=== PATIENT | female | born 1975 | race Caucasian/White ===

== ENCOUNTER → 2019-01-10 17:40 | Outpatient (CLI) | payer OTHER, SELFPAY ==
[2019-01-10 19:31] LABS: Basophils % 0.3 % (0.1-2.0); Eosinophils # 0.1 K/mm3 (0.0-0.4); Eosinophils % 0.7 % (0.1-12.0); Hematocrit 43.1 % (37.0-47.0); Hemoglobin 13.5 g/dL (12.2-16.2); Lymphocytes # 2.2 K/mm3 (0.7-4.5); Lymphocytes % 26.9 % (10-50); Mean Corpuscular HGB Conc 31.4 g/dL (31.8-35.4); Mean Corpuscular Hemoglobin 27.4 pg (27.0-31.2); Mean Corpuscular Volume 87.5 fl (81-99); Mean Platelet Volume 8.2 fl (7.4-10.4); Monocytes # 0.4 K/mm3 (0.1-1.0); Monocytes % 4.6 % (1.7-9.3); Neutrophils # 5.5 K/mm3 (1.8-7.8); Neutrophils % 67.4 % (37.0-80.0); Platelet Count 322 K/mm3 (142-424); Red Blood Count 4.93 M/mm3 (4.20-5.40); Red Cell Distribution Width 13.8 % (11.5-17.5); White Blood Count 8.2 K/mm3 (4.8-10.8)
[2019-01-10 21:03] LABS: Alanine Aminotransferase 23 U/L (12-78); Albumin Level 4.3 gm/dL (3.4-5.0); Albumin/Globulin Ratio 1.2 (1.1-1.8); Alkaline Phosphatase 96 U/L (46-116); Amylase 48 U/L (25-115); Anion Gap 16.2 mEq/L (5-15); Aspartate Amino Transferase 13 U/L (15-37); Bilirubin,Total 0.4 mg/dL (0.2-1.0); Blood Urea Nitrogen 16 mg/dL (7-18); Calcium 9.8 mg/dL (8.5-10.1); Carbon Dioxide 25 mmol/L (21.0-32.0); Chloride 101 mmol/L (98-107); Cholesterol 156 mg/dL (140-200); Creatinine,Serum 1.04 mg/dL (0.55-1.02); Estimated Glomerular Filt Rate 58 ml/min (>60); GFR (African American) 70 ML/MIN (>60); Globulin 3.7 gm/dl (1.3-3.2); Glucose 83 mg/dL (74-106); HDL Cholesterol 39 mg/dL (29-89); LDL Cholesterol 89 mg/dL (0-130); Lipase 182 u/L (73-393); Potassium 4.2 mmoL/L (3.5-5.1); Sodium 138 mmol/L (136-145); T4 (Thyroxine) 7.1 ug/dl (4.7-13.3); Thyroid Stimulating Hormone 1.64 uIU/ml (0.358-3.740); Triglycerides 140 mg/dL (30-200); VLDL Cholesterol 28 mg/dL (0-40)
== END ==
PROVIDERS: Visit Provider Physician Assistant
DX: R10.9 Unspecified abdominal pain (principal)
CPT/HCPCS: 80053; 80061; 82150; 83690; 84436; 84443; 85025

== ENCOUNTER → 2019-01-25 09:25 | Outpatient (CLI) | payer OTHER, SELFPAY ==
--- NOTE | 2019-01-25 09:29 | CT_ITS ---
PROCEDURE: CT ABDOMEN PELVIS WO CON CLINICAL HISTORY: right flank pain Abdominal pain, right flank pain COMPARISON: No exams were available for comparison TECHNIQUE: Axial images obtained with sagittal and coronal reformats. All CT scans at the facility use one or more dose reduction, viz: automated exposure control, ma/kV adjustment per patient size (including targeted exams where dose is matched to indication, i.e. head), or iterative reconstruction technique. FINDINGS: Lung bases are clear. Post cholecystectomy. No focal liver lesion. The spleen and adrenal glands have an unremarkable appearance. There is increased density in the region of the pancreatic head. This may only be secondary to prominent unopacified superior mesenteric and portal veins and could be confirmed with repeat exam with IV contrast. There are nonobstructing bilateral renal calculi. There is a 3 mm calculus in the upper pole of the right kidney and 2 mm calculi in the mid and lower pole of the left kidney. No ureteral calculi. No hydronephrosis. No evidence of appendicitis. There is some hyperdense material within the appendix and could be related to contrast or bismuth containing material or developing appendicoliths. No evidence of diverticulitis. No intestinal obstruction or free air. There is a mild amount of retained colonic feces. No pelvic mass or abnormal fluid collection or focal inflammatory change of the pelvis. No acute bony findings. IMPRESSION: 1. Nonobstructing bilateral renal calculi 2. Increased soft tissue density within the pancreatic head. May be related to unopacified prominent superior mesenteric and portal vein. Cannot exclude a mass of the pancreatic head consider repeating exam without and with contrast with pancreatic protocol for confirmation Dictated by: Jac Pinzon MD 01/25/2019 14:33 Signed by: <Electronically signed by Jac Pinzon MD in [place]> 01/25/2019 14:33
== END ==
PROVIDERS: PCP Emergency Medicine; Visit Provider Physician Assistant
DX: R10.9 Unspecified abdominal pain (principal)
CPT/HCPCS: 74176

== ENCOUNTER → 2019-02-12 09:54 | Outpatient (CLI) | payer OTHER, SELFPAY ==
--- NOTE | 2019-02-12 10:01 | CT_ITS ---
PROCEDURE: CT ABDOMEN PELVIS WO/W CON CLINICAL INDICATION: Possible pancreatic mass Mid abdominal pain, right-sided abdominal pain, possible pancreatic mass seen on previous CT scan COMPARISON: CT ABDOMEN PELVIS WO CON from 01/25/2019 TECHNIQUE: IV Contrast: 75ML OPTIRAY 350 Oral Contrast none Axial images obtained with sagittal and coronal reformats. All CT scans at the facility use one or more dose reduction, viz: automated exposure control, ma/kV adjustment per patient size (including targeted exams where dose is matched to indication, i.e. head), or iterative reconstruction technique. FINDINGS: Lung bases are clear. Post cholecystectomy change. No focal liver lesions. Nonobstructing bilateral renal calculi once again noted. No hydronephrosis. The spleen, adrenal glands have an unremarkable appearance. Previously there was a questionable pancreatic mass with increased soft tissue density noted in the head of the pancreas. This however represented a prominent superior mesenteric and portal vein. No pancreatic mass is evident. No evidence of pancreatitis. There is a tiny umbilical hernia which contains fat. Unremarkable appendix. No intestinal obstruction or free air. There is a bulky uterus without obvious uterine mass. Small cystic areas present in the left adnexa suggesting a small ovarian cyst at 1.3 cm. The urinary bladder has an unremarkable appearance. There are degenerative changes in the a thoracic and lumbar spine. IMPRESSION: 1. No evidence of pancreatic mass 2. No acute abdominal or pelvic findings. Dictated by: Jac Pinzon MD 02/12/2019 11:08 Signed by: <Electronically signed by Jac Pinzon MD in [place]> 02/12/2019 11:08
== END ==
PROVIDERS: PCP Physician Assistant; Visit Provider Physician Assistant
DX: R93.5 Abnormal findings on diagnostic imaging of other abdominal regions, including retroperitoneum (principal)
CPT/HCPCS: 74178; Q9967

== ENCOUNTER → 2019-02-26 09:11 | Outpatient (CLI) | payer OTHER, SELFPAY ==
--- NOTE | 2019-02-26 09:14 | MM_ITS ---
PROCEDURE: MM DIG SCREENING MAMM BI W/CAD Patient Age:43Y CLINICAL INDICATION: Screening for breast cancer no hormones. No new complaints. Family history.: Paternal and maternal aunt with breast cancer COMPARISON: [facility] MAMMO SCREENING BILATERAL from 02/24/2016.-[facility] TECHNIQUE: Standard CC and MLO images were obtained. R2 CAD reviewed. FINDINGS: Moderate breast density elements most evident central and to the upper outer quadrant. When technique is considered appears to be overall adequate stable mammogram today's studies higher contrast character but similar parenchymal pattern and distribution with no discrete dominant or suspicious new mass no change since previous outside studies from [facility] IMPRESSION: No new dominant or suspicious mass. Overall stable mammogram Moderately dense asymmetric breast tissue towards upper outer quadrant both breast is accentuated in both breast by today's technique compared to prior 2016 outside studies; however I see no convincing interval change when differences in technique considered.. Bilateral follow-up 1 year recommended and encouraged,... Along with self breast examination BI-RAD Category: 2 Benign Finding(s) FOLLOW-UP: 1YR 1 Year Follow-up Bilateral follow-up 1 year should be emphasized in encouraged along with self breast examination and provider attention towards towards upper-outer quadrant (A letter has been sent to the patient regarding results of the study.) Dictated by: Tripp Ellis MD 03/04/2019 20:00 Electronically signed by Tripp Ellis MD in [place] 03/05/2019 11:38
== END ==
PROVIDERS: PCP Physician Assistant; Visit Provider Physician Assistant
DX: Z12.31 Encounter for screening mammogram for malignant neoplasm of breast (principal)
CPT/HCPCS: 77067

== ENCOUNTER → 2019-09-23 09:22 | Outpatient (CLI) | payer MEDICAID, SELFPAY ==
--- NOTE | 2019-09-23 09:30 | MM_ITS ---
PROCEDURE: MM DIG MAMM DX UNILAT LT CAD Digital Breast Tomosynthesis Included CLINICAL INDICATION: Left breast mass COMPARISON: [facility] MAMMO SCREENING BILATERAL from 02/24/2016 MM DIG SCREENING MAMM BI W/CAD from 02/26/2019 US BREAST LT COMPLETE from 09/23/2019 TECHNIQUE: Standard CC and MLO images and 3D Tomosynthesis was obtained. R2 CAD reviewed. FINDINGS: There is average fibroglandular tissue. No malignant appearing mass or malignant-appearing microcalcification is evident. Patient reports palpable abnormality in the upper outer left breast. A marker is placed at this area. There is some heterogeneous tissue noted at this region but no discrete mass. Left breast ultrasound: No cystic or solid lesion. There is heterogeneous echogenic tissue at the area of palpable concern. Small nodes are present in the left axilla. IMPRESSION: No evidence of malignancy. Recommend continued screening mammogram in February of 2020 BI-RAD Category: 2 Benign Finding(s) FOLLOW-UP: 6M 6Month Follow-up (A letter has been sent to the patient regarding results of the study.) Dictated by: Jac Pinzon MD 09/23/2019 10:29 Electronically signed by Jac Pinzon MD in [place] 09/23/2019 10:29
== END ==
PROVIDERS: PCP Physician Assistant; Visit Provider Physician Assistant
DX: N63.21 Unspecified lump in the left breast, upper outer quadrant (principal)
CPT/HCPCS: 76641; 77061; 77065; G0279

== ENCOUNTER → 2020-02-20 18:53 | Outpatient (CLI) | payer MEDICAID, SELFPAY | PROVIDERS: Visit Provider Physician Assistant | DX: R10.30 Lower abdominal pain, unspecified (principal) | CPT/HCPCS: 87086; 87088; 87186 ==

== ENCOUNTER 2020-05-03 13:19 | Emergency (ER) | payer MEDICAID, SELFPAY ==
[2020-05-03 13:30] VITALS: BP 116/56; PULSE 85; RESP 18; TEMP 36.9; O2SAT 97; BMI 36.0
--- NOTE | 2020-05-03 14:15 | HMH.EDUTC ---
[facility] Disposition Clinical Impression: Acute bronchitis Qualifiers: Bronchitis organism: unspecified organism Qualified Code(s): J20.9 - Acute bronchitis, unspecified Otitis media Qualifiers: Otitis media type: suppurative Chronicity: acute Laterality: bilateral Recurrence: non-recurrent Spontaneous tympanic membrane rupture: without spontaneous rupture Qualified Code(s): H66.003 - Acute suppurative otitis media without spontaneous rupture of ear drum, bilateral Disposition: Home, Self-Care Condition on Discharge: Good Instructions: Acute Bronchitis, DI for Acute Bronchitis Additional Instructions: Drink plenty of fluids. Take tylenol or ibuprofen for pain or fever. Take the medications as directed. Follow up with your regular doctor. GO TO THE ER FOR ANY WORSENING SYMPTOMS Prescriptions: Albuterol Sulfate [Albuterol Sulfate Hfa] 2 puffs IH Q6HP PRN 30 Days #1 [email or web address] PRN Reason: Shortness Of Breath [facility] methylPREDNISolone [Medrol] 4 mg PO DIRECTED 6 Days #21 tab.[email or web address] Transmission Status: [facility] Benzonatate [Tessalon Perle 100mg Cap] 100 mg PO TIDP PRN #30 cap PRN Reason: Cough Transmission Status[facility] Azithromycin [Z-Porter 250mg Tab*] 250 mg PO UD DOSE PK #6 tab Transmission Status: Pending to [facility] Referrals: Cammie Stack PA [Primary Care Provider] - Time of Disposition: 14:21 Medical Decision Making - Medical Records Medical records reviewed: No: I reviewed the patient's medical records. - Aron Inquiry Pt receiving controlled substance: No Vital Signs: 05/03/20 13:30 Temperature 98.5 F Temperature Source Oral Pulse Rate [Right Brachial] 85 Respiratory Rate 18 Blood Pressure [Right Arm] 116/56 L Blood Pressure Mean [Right Arm] 76 Blood Pressure Source [Right Arm] Automatic Cuff Blood Pressure Position [Right Arm] Sitting 02 Sat by Pulse Oximetry 97 Oxygen Delivery Method Room Air [facility] HPI - General Stated complaint: ear pain Time Seen by Provider: 05/03/20 14:15 Mode of Arrival: Ambulatory Source of Information: Patient Limitations: No Limitations Description of Symptoms (Recalled from Triage Doc. by RN): PATIENT C/O RIGHT EAR PAIN AND PRODUCTIVE COUGH X 2 WEEKS HEENT Symptoms (Recalled from RN notes): Yes Resp Symptoms (Recalled from RN notes): Yes Skin Symptoms (Recalled from RN notes): No MS Symptoms (Recalled from RN notes): No Functional Status (Recalled from RN notes): WNL - History of Present Illness Provider Complaint: She states that she has had a productive cough for the past 2 weeks. She states that she gets this every year. She has had pneumonia in the past but not recently. She also c/o right ear pain for the past 3 days and sinus congestion. She denies any fever, chills, body aches. She denies any known exposure to COVID-19. - Related Data Previous Rx's Medication Instructions Recorded linaclotide 72 mcg capsule 72 mcg PO DAILY #30 cap 09/24/19 trazodone 50 mg tablet 50 mg PO QHS #30 tab 09/24/19 cefdinir 300 mg capsule 300 mg PO Q12H 10 Days #20 cap 02/20/20 prednisone 20 mg tablet 20 mg PO BID #10 tab 02/20/20 Albuterol Sulfate [Albuterol 2 puffs IH Q6HP PRN 30 Days #1 05/03/20 Sulfate Hfa] hfa.aer.ad Azithromycin [Z-Porter 250mg Tab*] 250 mg PO UD DOSE PK #6 tab 05/03/20 Benzonatate [Tessalon Perle 100mg 100 mg PO TIDP PRN #30 cap 05/03/20 Cap] methylPREDNISolone [Medrol] 4 mg PO DIRECTED 6 Days #21 05/03/20 tab.ds.pk Allergies Allergy/AdvReac Type Severity Reaction Status Date / Time No Known Allergies Allergy Verified 02/20/20 16:12 - Worker's Comp Is this a Worker's Comp case?: No [facility] History - Hepatitis A Screen Drug use history?: No High risk sexual behaviors?: No History of sexually transmitted infection?: No Currently employed?: No Childcare worker?: No Do you have indoor plumbing?
[2020-05-03 14:27] VITALS: BP 116/56; PULSE 85; RESP 18; TEMP 36.9; O2SAT 97
== END 2020-05-03 14:30 | disposition home or self-care (01) ==
PROVIDERS: Emergency Provider Nurse Practitioner Family; PCP Physician Assistant
DX: J20.9 Acute bronchitis, unspecified (principal); H66.003 Acute suppurative otitis media without spontaneous rupture of ear drum, bilateral
CPT/HCPCS: 99201

== ENCOUNTER 2020-05-09 13:30 | Emergency (ER) | payer MEDICAID, SELFPAY ==
[2020-05-09 13:49] VITALS: BP 106/67; PULSE 98; RESP 18; O2SAT 98; BMI 36.0
--- NOTE | 2020-05-09 13:57 | HMH.EDUTC ---
[facility] [place] Clinical Impression: Encounter for laboratory testing for COVID-19 virus Otitis media Qualifiers: Otitis media type: unspecified Laterality: right Qualified Code(s): H66.91 - Otitis media, unspecified, right ear Disposition: Home, Self-Care Condition on Discharge: Good Instructions: Preventing the Spread of Coronavirus Discharge Instructions Additional Instructions: *Monitor Temp, Over the counter Motrin or Tylenol as directed/as needed Tylenol every 4 hours and Motrin every 6 hours (as long as your family doctor has told you that you can take it) for fever or pain. and straight to ER if unable to lower temp less than 101.0 after medication given *Warm salt water gargles may help to soothe the throat *Throat Lozenges *Warm fluids like tea with honey may help to soothe the throat *Sleep elevated *Humidifier/Vaporizer *Flonase 2 sprays in each nostril daily but be aware that it may take 2-3 days before you notice improvement Follow up IMMEDIATELY for new or worsening symptoms or no Noticeable improvement over the next 48-72 hours. 911 for difficulty breathing or swallowing You was tested for today for COVID19 your test result should be back in the next 24-48 hours, you may call to the [facility] later today or tomorrow to see if your test results are back and the result [phone] [facility] hours are 9am-9pm You was given a handout with instructions for Self Quarantine and Self isolation for while you wait on test results and what to do if they are positive If you are positive the Health Dept will be contacting you also Prescriptions: Fluticasone Propionate [Flonase 50mcg nasal spray 16gm] 1 spr NS DAILY #1 bottle Transmission Status: Pending to [facility] Cefdinir [Omnicef 300mg Capsule] 300 mg PO BID #20 cap Transmission Status: Pending to [facility] Referrals: Cammie Stack PA [Primary Care Provider] - As needed Forms: Work/School Release Time of Disposition: 14:07 Medical Decision Making - Aron Inquiry Pt receiving controlled substance: No Aron was queried for this patient: No Vital Signs: 05/09/20 13:49 Pulse Rate [Radial] 98 H Respiratory Rate 18 Blood Pressure [Right Arm] 106/67 L Blood Pressure Mean [Right Arm] 80 Blood Pressure Source [Right Arm] Automatic Cuff Blood Pressure Position [Right Arm] Sitting 02 Sat by Pulse Oximetry 98 Oxygen Delivery Method Room Air Orders (Tests/Meds): ORDERS Category Date Time Status Covid-19 Nasal PCR ([facility]) Routine Lab 05/09/20 13:44 Received [facility] [place] HPI - General Stated complaint: cough, not taste, no smell headache, stuffy nose Time Seen by Provider: 05/09/20 13:57 Mode of Arrival: Ambulatory Source of Information: Patient Limitations: No Limitations Description of Symptoms (Recalled from Triage Doc. by RN): coughing up green stuff loss of taste and smell, wants covid test. HEENT Symptoms (Recalled from RN notes): Yes Resp Symptoms (Recalled from RN notes): No Skin Symptoms (Recalled from RN notes): No MS Symptoms (Recalled from RN notes): No Functional Status (Recalled from RN notes): wnl - History of Present Illness Provider Complaint: Patient states that she is still having sinus pressure, drainage States that she has been coughing up the same stuff she is blowing out her nose States that she felt like she was having some drainage States that she was seen and treated last week for bronchitis and just finished medication Also states that she is having pain and pressure in her right ear and wnted to get checked for COVID - Related Data Previous Rx's Medication Instructions Recorded linaclotide 72 mcg capsule 72 mcg PO DAILY #30 cap 09/24/19 trazodone 50 mg tablet 50 mg PO QHS #30 tab 09/24/19 cefdinir 300 mg capsule 300 mg PO Q12H 10 Days #20 cap 02/20/20 prednisone 20 mg tablet 20 mg PO BID #10 tab 02/20/20 Albuterol Sulfate [Albuterol 2 puffs IH Q6HP PRN 30 Days #1 05/03/20 Sulfate Hfa] hfa.
[2020-05-09 14:33] VITALS: BP 106/67; PULSE 98; RESP 18; TEMP 36.6; O2SAT 98
--- NOTE | 2020-05-09 18:03 | PC.NURSE ---
Patient notified of positive covid results. educated on quarantine.
[2020-05-10 19:02] LABS: UTC Influenza A Antigen Negative (Negative); UTC Influenza B Antigen Negative (Negative)
== END 2020-05-09 14:34 | disposition home or self-care (01) ==
PROVIDERS: Emergency Provider Nurse Practitioner; PCP Physician Assistant
DX: U07.1 COVID-19 (principal); H66.91 Otitis media, unspecified, right ear
CPT/HCPCS: 87804; 99201; U0003

== ENCOUNTER → 2020-06-17 19:44 | Outpatient (CLI) | payer MEDICAID, SELFPAY ==
[2020-06-17 20:02] LABS: Basophils # 0.2 K/mm3 (0-0.2); Basophils % 2.8 % (0.1-2.0); Eosinophils # 0.1 K/mm3 (0.0-0.4); Eosinophils % 1.1 % (0.1-12.0); Hematocrit 38.8 % (37.0-47.0); Hemoglobin 12.8 g/dL (12.2-16.2); Lymphocytes # 2.2 K/mm3 (0.7-4.5); Lymphocytes % 27.3 % (10-50); Mean Corpuscular Hemoglobin 27.7 pg (27.0-31.2); Mean Corpuscular Volume 83.9 fl (81-99); Mean Platelet Volume 11.7 fl (7.4-10.4); Monocytes # 0.5 K/mm3 (0.1-1.0); Monocytes % 6.4 % (1.7-9.3); Neutrophils # 4.9 K/mm3 (1.8-7.8); Neutrophils % 62.4 % (37.0-80.0); Platelet Count 349 K/mm3 (142-424); Red Blood Count 4.62 M/mm3 (4.20-5.40); White Blood Count 7.9 K/mm3 (4.8-10.8)
[2020-06-17 20:23] LABS: 25-OH Vitamin D, Total 31.2 ng/mL (30-100)
[2020-06-17 20:24] LABS: Free T4 (Free Thyroxine) 0.88 ng/dl (0.78-2.19)
[2020-06-17 21:31] LABS: Alanine Aminotransferase 13 U/L (12-78); Albumin Level 4.6 g/dl (3.5-5.0); Albumin/Globulin Ratio 1.4 (1.1-1.8); Alkaline Phosphatase 80 U/L (38-126); Aspartate Amino Transferase 25 U/L (14-36); Bilirubin,Total 0.3 mg/dl (0.2-1.3); Blood Urea Nitrogen 14 mg/dl (7-17); Calcium 9.9 mg/dl (8.4-10.2); Carbon Dioxide 29 mmol/L (22.0-30.0); Chloride 101 mmol/L (98-107); Chol/HDL Ratio 4.1 (1-3.5); Cholesterol 182 mg/dl (140-200); Estimated Glomerular Filt Rate 67 ml/min (>60); GFR (African American) 82 ML/MIN (>60); Globulin 3.2 g/dL (1.3-3.2); Glucose 95 mg/dl (74-100); HDL Cholesterol 44 mg/dl (40-60); Sodium 139 mmol/L (136-145); Total Protein,Serum 7.8 g/dl (6.3-8.2); Triglycerides 137 mg/dl (30-150); VLDL Cholesterol 27 mg/dL (0-40)
[2020-06-17 21:42] LABS: Direct LDL Cholesterol 108.57 mg/dL (100-129)
[2020-06-17 22:02] LABS: Thyroid Stimulating Hormone 1.33 uIU/mL (0.465-4.68)
[2020-06-19 12:17] LABS: FSH 4.9 mIU/mL (.); LH 12.1 mIU/mL (.); Progesterone 0.1 ng/mL (.)
[2020-06-21 10:50] LABS: Estrogen 160 pg/mL (.)
== END ==
PROVIDERS: Visit Provider Physician Assistant
DX: Z00.00 Encounter for general adult medical examination without abnormal findings (principal); N94.6 Dysmenorrhea, unspecified; R53.83 Other fatigue
CPT/HCPCS: 80053; 80061; 82306; 82672; 83001; 83002; 84144; 84439; 84443; 85025

== ENCOUNTER 2020-06-19 14:29 | Emergency (ER) | payer MEDICAID, SELFPAY ==
[2020-06-19 14:35] VITALS: BP 117/72; PULSE 89; RESP 19; TEMP 36.7; O2SAT 99; BMI 36.6
--- NOTE | 2020-06-19 14:38 | XR_ITS ---
PROCEDURE: XR HIP RT 2-3V W/PELVIS CLINICAL INDICATION: PAIN COMPARISON: No exams were available for comparison FINDINGS: No fracture or dislocation is evident. No significant degenerative change. No lytic or blastic change. Unremarkable soft tissues. There is sclerosis at the symphysis pubis consistent with osteitis pubis. There is mild hypertrophic changes at the SI joints. IMPRESSION: Unremarkable right hip. 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
--- NOTE | 2020-06-19 15:14 | HMH.EDUTC ---
[facility] [place] Clinical Impression: Right hip pain Disposition: Home, Self-Care Condition on Discharge: Good Instructions: DI for Hip Labral Tear, DI for Hip Pain Additional Instructions: Rest the extremity, apply ice for 15 minutes as tolerated three or four times per day, Elevate the extremity as tolerated while you are resting. Take ibuprofen for pain. I sent in a prescription to your pharmacy. Follow up with Dr. Mcdonald (orthopedics). Sometimes there can be fractures that don't show up well on the first set of x-rays. So, you should follow up if you continue to have symptoms. You might need a ct scan or MRI to completely evaluate your hip if it keeps hurting. I put in a referral but you need to call his office and schedule an appointment. Follow up with your regular doctor. GO TO THE ER FOR ANY WORSENING SYMPTOMS Prescriptions: Ibuprofen [Ibuprofen 600mg Tablet] 600 mg PO Q6HP PRN #30 tab PRN Reason: Mild Pain Transmission Status: Received by [facility] Referrals: Cammie Stack PA [Primary Care Provider] - Venu Mcdonald MD [Staff Physician] - Time of Disposition: 15:53 Medical Decision Making - Medical Records Medical records reviewed: No: I reviewed the patient's medical records. - Aron Inquiry Pt receiving controlled substance: No Vital Signs: 06/19/20 14:35 06/19/20 16:04 Temperature 98.1 F 98.1 F Temperature Source Oral Pulse Rate 89 Pulse Rate [Right Brachial] 89 Respiratory Rate 19 19 Blood Pressure 117/72 Blood Pressure [Right Arm] 117/72 Blood Pressure Mean [Right Arm] 87 Blood Pressure Source [Right Arm] Automatic Cuff Blood Pressure Position [Right Arm] Sitting 02 Sat by Pulse Oximetry 99 Oxygen Delivery Method Room Air - Radiology Data #1 Image(s): Hip Image Reviewed: Yes I reviewed the patient's radiology image, Yes I have reviewed radiologist's interpretation Preliminary Findings: No Fracture Seen PROCEDURE: XR HIP RT 2-3V W/PELVIS CLINICAL INDICATION: PAIN COMPARISON: No exams were available for comparison FINDINGS: No fracture or dislocation is evident. No significant degenerative change. No lytic or blastic change. Unremarkable soft tissues. There is sclerosis at the symphysis pubis consistent with osteitis pubis. There is mild hypertrophic changes at the SI joints. IMPRESSION: Unremarkable right hip. Mild osteitis pubis and mild degenerative changes of the SI joints Dictated by: Jac Pinzon MD 06/19/2020 15:46 Jac Pinzon MD in [place] 06/19/2020 15:46 [facility] [place] - General Stated complaint: right hip pain Time Seen by Provider: 06/19/20 15:14 Mode of Arrival: Ambulatory Source of Information: Patient Limitations: No Limitations Description of Symptoms (Recalled from Triage Doc. by RN): PATIENT C/O RIGHT HIP PAIN WITH DECREASED ROM. REPORTS SHE WAS WRESTLING WITH HER SON AND HEARD A POP IN RIGHT HIP HEENT Symptoms (Recalled from RN notes): No Resp Symptoms (Recalled from RN notes): No Skin Symptoms (Recalled from RN notes): No MS Symptoms (Recalled from RN notes): Yes Functional Status (Recalled from RN notes): WNL - History of Present Illness Provider Complaint: She states that yesterday evening she was wrestling with her son when she felt a pop in her right hip. Since then she has had right hip pain. The pain is worse when she is sitting for a long period. It gets slightly better when she stands. - Related Data Previous Rx's Medication Instructions Recorded Ibuprofen [Ibuprofen 600mg 600 mg PO Q6HP PRN #30 tab 06/19/20 Tablet] Allergies Allergy/AdvReac Type Severity Reaction Status Date / Time No Known Allergies Allergy Verified 06/17/20 15:16 - Worker's Comp Is this a Worker's Comp case?: No [facility] History - Hepatitis A Screen Drug use history?: No High risk sexual behaviors?: No History of sexually transmitted infection?: No Currently employed
[2020-06-19 16:04] VITALS: BP 117/72; PULSE 89; RESP 19; TEMP 36.7; O2SAT 99
== END 2020-06-19 16:05 | disposition home or self-care (01) ==
PROVIDERS: Emergency Provider Nurse Practitioner Family; PCP Physician Assistant
DX: M25.551 Pain in right hip (principal)
CPT/HCPCS: 73502; 99202; G0463

== ENCOUNTER → 2020-07-21 07:54 | Outpatient (CLI) | payer MEDICAID, SELFPAY ==
--- NOTE | 2020-07-21 07:54 | MM_ITS ---
PROCEDURE: MM DIG SCREENING MAMM BI W/CAD Digital Breast Tomosynthesis Included CLINICAL INDICATION: Routine Screening Mammogram There is a history of breast cancer in the patient's paternal aunt and maternal aunt. COMPARISON: [facility] MAMMO SCREENING BILATERAL from 02/24/2016 [facility] MM DIG SCREENING MAMM BI W/CAD from 02/26/2019 US US BREAST LT COMPLETE from 09/23/2019 [facility] MM DIG MAMM DX UNILAT LT CAD from 09/23/2019 TECHNIQUE: Standard CC and MLO images and 3D Tomosynthesis was obtained. R2 CAD reviewed. FINDINGS: Moderate diffuse fibroglandular densities are seen throughout both breast. There is a possible small asymmetric density deep inner quadrant left breast. Are jignesh images suggested this represents asymmetric glandular elements and not a true mass. Ultrasound of this area 09/23/2019 showed no abnormality. There is no suspicious lesion and no suspicious microcalcifications. IMPRESSION: Moderate diffuse breast density with no suspicious lesions seen BI-RAD Category: 1 Negative FOLLOW-UP: 1YR 1 Year Follow-up (A letter has been sent to the patient regarding results of the study.) Dictated by: Dr. Harvey Busby MD 07/23/2020 08:42 Dr. Harvey Busby MD in [place] 07/23/2020 08:42
== END ==
PROVIDERS: PCP Physician Assistant; Visit Provider Obstetrics & Gynecology
DX: Z12.31 Encounter for screening mammogram for malignant neoplasm of breast (principal)
CPT/HCPCS: 77063; 77067

== ENCOUNTER → 2020-08-10 14:39 | Outpatient (CLI) | payer MEDICAID, SELFPAY ==
[2020-08-10 20:28] LABS: Amphetamine/Metha Screen,Urine Negative ng/ml (<1000)
[2020-08-10 20:29] LABS: Barbiturates Screen,Urine Negative ng/ml (<200); Benzodiazepines Screen,Urine Negative ng/ml (<200)
[2020-08-10 20:30] LABS: Cannabinoid Screen,Urine Negative ng/ml (<50)
[2020-08-10 20:31] LABS: Cocaine Screen,Urine Negative ng/ml (<300); Methadone Screen,Urine Negative ng/ml (<300)
[2020-08-10 21:55] LABS: Phencyclidine Screen,Urine Negative ng/ml (<25)
[2020-08-10 21:56] LABS: Opiate Screen,Urine Negative ng/ml (<300)
== END ==
PROVIDERS: Visit Provider Physician Assistant
DX: M79.604 Pain in right leg (principal); R68.89 Other general symptoms and signs
CPT/HCPCS: 80305

== ENCOUNTER 2020-09-23 09:00 | Outpatient (RCR) | payer MEDICAID, SELFPAY | END 2020-09-23 09:05 | disposition home or self-care (01) | LOC: PT 09:00 | PROVIDERS: PCP Physician Assistant; Visit Provider Physician Assistant | DX: M25.551 Pain in right hip (principal) | CPT/HCPCS: 97010; 97014; 97035; 97110; 97163; 97164; G0283 ==

== ENCOUNTER → 2020-09-30 14:28 | Outpatient (CLI) | payer MEDICAID, SELFPAY ==
--- NOTE | 2020-09-30 14:28 | US_ITS ---
PROCEDURE: US TRANSVAGINAL CLINICAL INDICATION: menorrhagia COMPARISON: No exams were available for comparison FINDINGS: UTERUS: 10cm x 7cmx 5cm with a combined endometrial thickness of 17mm LEFT OVARY: [id number] with a volume of 7.1ml. RIGHT OVARY: [id number] with a volume of 3.9ml. Nabothian cysts are present. A 14 mm cyst is present along the anterior aspect of the surface and may be due to a Bartholin cyst. There is prominent thickening of the endometrium measuring 17 mm. Echogenic foci are present within the endocervical canal and may be due to air or calcification. There is trace amount of fluid in the cul-de-sac IMPRESSION: Thickened endometrium at 17 mm with trace amount of fluid in the cul-de-sac Nabothian and Bartholin cyst Dictated by: Jac Pinzon MD 10/01/2020 16:32 Jac Pinzon MD in [place] 10/01/2020 16:32
== END ==
PROVIDERS: PCP Physician Assistant; Visit Provider Obstetrics & Gynecology
DX: N92.0 Excessive and frequent menstruation with regular cycle (principal)
CPT/HCPCS: 76830

== ENCOUNTER → 2020-10-22 08:02 | Outpatient (CLI) | payer MEDICAID, SELFPAY ==
[2020-10-22 08:17] LABS: Basophils % 0.4 % (0.1-2.0); Eosinophils # 0.1 K/mm3 (0.0-0.4); Eosinophils % 1.3 % (0.1-12.0); Hematocrit 37.1 % (37.0-47.0); Hemoglobin 11.8 g/dL (12.2-16.2); Lymphocytes # 1.8 K/mm3 (0.7-4.5); Lymphocytes % 29.3 % (10-50); Mean Corpuscular HGB Conc 31.9 g/dL (31.8-35.4); Mean Corpuscular Hemoglobin 26.3 pg (27.0-31.2); Mean Corpuscular Volume 82.4 fl (81-99); Mean Platelet Volume 7.5 fl (7.4-10.4); Monocytes # 0.3 K/mm3 (0.1-1.0); Monocytes % 5.4 % (1.7-9.3); Neutrophils # 3.9 K/mm3 (1.8-7.8); Neutrophils % 63.6 % (37.0-80.0); Platelet Count 269 K/mm3 (142-424); Red Blood Count 4.51 M/mm3 (4.20-5.40); Red Cell Distribution Width 13.8 % (11.5-17.5); White Blood Count 6.1 K/mm3 (4.8-10.8)
[2020-10-22 09:06] LABS: Chloride 104 mmol/L (98-107); Potassium 4.1 mmoL/L (3.5-5.1); Sodium 137 mmol/L (136-145)
[2020-10-22 09:09] LABS: Alanine Aminotransferase 12 U/L (12-78); Albumin Level 4.5 g/dl (3.5-5.0); Albumin/Globulin Ratio 1.6 (1.1-1.8); Alkaline Phosphatase 78 U/L (38-126); Anion Gap 13.1 mEq/L (5-15); Aspartate Amino Transferase 22 U/L (14-36); Bilirubin,Total 0.3 mg/dl (0.2-1.3); Blood Urea Nitrogen 16 mg/dl (7-17); Calcium 9.7 mg/dl (8.4-10.2); Carbon Dioxide 24 mmol/L (22.0-30.0); Estimated Glomerular Filt Rate 60 ml/min (>60); GFR (African American) 72 ML/MIN (>60); Globulin 2.8 g/dL (1.3-3.2); Glucose 89 mg/dl (74-100); Total Protein,Serum 7.3 g/dl (6.3-8.2)
[2020-10-22 09:30] LABS: HCG Qualitative, Serum Negative (Negative)
== END ==
PROVIDERS: Visit Provider Obstetrics & Gynecology
DX: Z01.812 Encounter for preprocedural laboratory examination (principal); Z11.52 Encounter for screening for COVID-19; N92.1 Excessive and frequent menstruation with irregular cycle; N94.6 Dysmenorrhea, unspecified
CPT/HCPCS: 36415; 80053; 84703; 85025; U0003

== ENCOUNTER 2020-10-23 06:58 | Day surgery (SDC) | payer MEDICAID, SELFPAY ==
[2020-10-23] VITALS (13 sets, daily range): BP systolic 112–131; BP diastolic 57–86; PULSE 61–88; RESP 12–20; TEMP 36.4–42.7; O2SAT 96–100; BMI 34.0
--- NOTE | 2020-10-23 08:46 | HMH.ANESCL ---
[facility] Anesthesia Checklist - Patient Identification Patient Identification: Arm Band - Structural Data Admitted From: Home Planned Operative Procedure/s: Hysteroscopy, D & C/Novasure/Myosure Consent for Planned Operative Procedure(s) Verified: Yes - NPO Status Verified Time NPO: 00:00 - Additional verifications Anesthesia Reactions: No Hx Blood Transfusions: No Blood Transfusion Reaction: No - Airway Assessment C-Spine Mobility Assessed: Yes TMJ Mobility Assessed: Yes Dentition: Good Dentition - Neurological Assessment Level of Consciousness: Awake Hx Seizures: No Numbness or tingling in extremities: No - Anesthesia Plan Anesthesia Risk discussed: Yes Anesthesia Plan: Verified ASA Class: II Anesthesia Type: General [facility] History I have reviewed the patient's past medical history: Yes Medical History: Reports:: Gastroesophageal Reflux Disease(GERD) Denies:: Cancer, Diabetes Mellitus Type 1, Diabetes Mellitus Type 2, Internal Pacemaker, MRSA, Seizures *Have you ever received a pneumonia vaccine?: No *Have you received a flu vaccine this season?: No Other Medical History: Denies: Blood Transfusion Reaction Anesthesia experience/problems:: WOke up too soon per patient Other Surgeries: Yes: Cholecystectomy, Tubal Ligation. No: Pacemaker Amputation: No Fractures: No - *Social History Smoking Status: Never smoker Alcohol Intake: never Substance Use Type: denies use *Occupational Status:: employed Housing: house Household Members: spouse *Travel in the last 8 weeks: None Family Hx:: Cancer, Diabetes
--- NOTE | 2020-10-23 09:33 | P.PN_ITS ---
[facility] Anesthesia Record Part I Intake, IV Amount: 750 Estimated blood loss (mL): 5 Urine output (mL): 0 Blood Pressure: 116/72 SaO2: 100 Pulse Rate: 87 Respiratory Rate: 12 Temperature: 98.4 F Patient is:: Drowsy Stable to PACU at:: 09:31
--- NOTE | 2020-10-23 10:30 | HMH.ANESII ---
[facility] Anesthesia Record Part II Discharge Time: 10:10 Destination: Surgical Day Care (OP Surgery) PACU nurse assessment reviewed?: Yes Patient Condition:: Good Anesthesia Complications:: None Swallowing reflex intact?: Yes Cyanosis?: No Blood Pressure: 118/69 Pulse Rate: 71 Temperature: 98.3 F Mental Status: Alert & Oriented Pain level:: 2 Nausea and/or vomitting:: None Intake, IV Amount: 0
--- NOTE | 2020-10-23 12:22 | HMH.OPNOTE ---
Date of procedure: 10/23/20 Pre-op Diagnosis:: 1. Heavy menstrual bleeding 2. Prolonged menstruation 3. Dysfunctional uterine bleeding Post-op Diagnosis:: same Procedure performed:: Myosure D&C Hysteroscopy Novasure Endometrial Ablation Surgeon:: Tatum Roque MD DISPATCHER MAINTENANCE SERVICE:: Other Anesthesia: GETA Estimated blood loss (mL): 5 Operative findings:: several polypoid lesions endometrial cavity Operative note:: The patient was taken to the operating room and general anesthesia was administered. She was prepped/draped in lithotomy position. The anterior lip of the cervix was grasped with a single tooth tenaculum and the cervix was dilated with Green dilators of serially increasing size until the external os was able to accomodate the Myosure hysteroscope. The hysteroscope was advanced through the cervix and into the uterine cavity, which was distended with LR. Once the uterus was sufficiently distended, the cavity was evaluated and revealed several polypoid lesions within the uterine cavity. The Myosure was inserted into the hysteroscope and these lesions were excised successfully and without complication or significant fluid deficit. After the conclusion of this procedure, the Myosure and hysteroscope were removed from the uterus. The uterine cavity sounded to a length of 5cm. The Novasure was inserted through the cervix and expanded to fit the width of the uterus, with a width of 4.5cm. After a successful cavity assessment, the device was deployed and the endometrial ablation was completed in 96 seconds. Once the device had turned off, the Novasure was removed from the uterus and the hysteroscope was reinserted into the uterine cavity. The cavity appeared diffusely cauterized. The hysteroscope was removed from the uterus and all instruments removed from the vagina. The tenaculum site was hemostatic. All sponge/lap/needle/instrument counts correct x2. Total EBL: 5cc. The patient was taken out of lithotomy position, extubated and taken to the PACU in stable condition. Condition: stable Disposition: PACU Specimens:: endometrial Complications:: none
== END 2020-10-23 10:42 | disposition home or self-care (01) ==
LOC: OR 06:59
PROVIDERS: PCP Physician Assistant; Visit Provider Obstetrics & Gynecology
PROC: (CPT 58563; principal; 2020-10-23 08:30)
DX: N85.00 Endometrial hyperplasia, unspecified (principal); N92.1 Excessive and frequent menstruation with irregular cycle; N94.6 Dysmenorrhea, unspecified; Z98.51 Tubal ligation status; K21.9 Gastro-esophageal reflux disease without esophagitis; Z90.49 Acquired absence of other specified parts of digestive tract; Z80.9 Family history of malignant neoplasm, unspecified; Z83.3 Family history of diabetes mellitus; Z79.899 Other long term (current) drug therapy
CPT/HCPCS: 58563; 96374; J2405

== ENCOUNTER 2021-05-19 12:09 | Emergency (ER) | payer MEDICAID, SELFPAY ==
[2021-05-19 12:13] VITALS: BP 115/67; PULSE 63; RESP 18; TEMP 36.7; O2SAT 96; BMI 31.2
[2021-05-19 12:19] VITALS: BP 115/67; PULSE 67; O2SAT 99
[2021-05-19 12:30] VITALS: BP 122/75; PULSE 57; O2SAT 100
[2021-05-19 12:39] LABS: Basophils # 0.1 K/mm3 (0-0.2); Basophils % 0.8 % (0.1-2.0); Eosinophils # 0.1 K/mm3 (0.0-0.4); Eosinophils % 1.8 % (0.1-12.0); Hematocrit 36.4 % (37.0-47.0); Hemoglobin 12.3 g/dL (12.2-16.2); Lymphocytes % 33.1 % (10-50); Mean Corpuscular HGB Conc 33.7 g/dL (31.8-35.4); Mean Corpuscular Hemoglobin 28.1 pg (27.0-31.2); Mean Corpuscular Volume 83.4 fl (81-99); Mean Platelet Volume 7.4 fl (7.4-10.4); Monocytes # 0.3 K/mm3 (0.1-1.0); Monocytes % 5.6 % (1.7-9.3); Neutrophils # 3.5 K/mm3 (1.8-7.8); Neutrophils % 58.7 % (37.0-80.0); Platelet Count 285 K/mm3 (142-424); Red Blood Count 4.37 M/mm3 (4.20-5.40); Red Cell Distribution Width 14.3 % (11.5-17.5); White Blood Count 5.9 K/mm3 (4.8-10.8)
--- NOTE | 2021-05-19 12:51 | CT_ITS ---
PROCEDURE: CT ABDOMEN PELVIS W CON CLINICAL INDICATION: RLQ pain COMPARISON: CT CT ABDOMEN PELVIS WO/W CON from 02/12/2019 US US TRANSVAGINAL from 05/19/2021 TECHNIQUE: IV Contrast: 75ML Isovue 370 Oral Contrast None Axial images obtained with sagittal and coronal reformats. All CT scans at the facility use one or more dose reduction, viz: automated exposure control, ma/kV adjustment per patient size (including targeted exams where dose is matched to indication, i.e. head), or iterative reconstruction technique. FINDINGS: LOWER THORAX: No acute finding ABDOMEN & PELVIS: Prior cholecystectomy. Mild fatty liver. The spleen, adrenal glands, and pancreas have an unremarkable appearance. Minimal nodularity of the left adrenal gland not significantly changed. There are nonobstructing bilateral renal calculi with a 4 mm stone in the mid polar region of the left kidney and a 3 mm stone in the mid polar region of the right kidney. No definite ureteral calculus. No intestinal obstruction or free air. No evidence of appendicitis. No pelvic mass or abnormal fluid collection. There is some asymmetric enhancement of the right aspect of the uterus and periuterine vessels. This is of uncertain clinical significance. No pelvic fluid collection apparent. A small area of outpouching of the endometrial canal is noted on the right. This measures approximately 6 mm. Suspect small left ovarian cyst my lobular in nature There are degenerative changes in the lower thoracic spine with multilevel Schmorl's nodes and endplate irregularity. IMPRESSION: 1. Nonobstructing bilateral renal calculi. No ureteral calculi or hydronephrosis. 2. No evidence of appendicitis 3. Asymmetrical enhancement of the right aspect of the uterus and right periuterine vessels. Suspected fibroid noted on ultrasound performed on the same day possibly related to the asymmetrical area of enhancement of the uterus. Prominent periuterine veins could be related to pelvic congestion syndrome... Hypodensity in the right aspect of the endometrial canal which may be related to an endometrial polyp as seen on ultrasound. Dictated by: Jac Pinzon MD 05/19/2021 14:29 Jac Pinzon MD in [place] 05/19/2021 14:29
--- NOTE | 2021-05-19 12:51 | US_ITS ---
PROCEDURE: US TRANSVAGINAL CLINICAL INDICATION: RlQ pain, hx of ovarian cysts, concern for torsion COMPARISON: US US TRANSVAGINAL from 09/30/2020 FINDINGS: UTERUS: 9cm x 6cmx 5cm with a combined endometrial thickness of 10.3mm LEFT OVARY: [id number] with a volume of 4.4ml. RIGHT OVARY: [id number] with a volume of 8.9ml. There is a nabothian cyst at 12 mm. Within the upper aspect of the endometrium there is a somewhat heterogeneous area echogenicity measuring 12 x 7 x 10 mm suspicious for an endometrial polyp. There is increased echogenicity along the anterior aspect of the uterine fundus measuring 3.5 x 2.7 cm and may represent a uterine fibroid. Small bilateral ovarian follicles are noted. No cul-de-sac fluid. IMPRESSION: 1. Suspect small uterine endometrial polyp and a fundal fibroid. 2. Endometrial thickness upper normal at 10 mm. Dictated by: Jac Pinzon MD 05/19/2021 14:39 Jac Pinzon MD in [place] 05/19/2021 14:39
[2021-05-19 12:55] LABS: Alanine Aminotransferase 11 U/L (12-78); Albumin/Globulin Ratio 1.3 (1.1-1.8); Alkaline Phosphatase 60 U/L (38-126); Anion Gap 6.8 mEq/L (5-15); Aspartate Amino Transferase 26 U/L (14-36); Bilirubin,Total 0.3 mg/dl (0.2-1.3); Blood Urea Nitrogen 15 mg/dl (7-17); Calcium 9.4 mg/dl (8.4-10.2); Carbon Dioxide 29 mmol/L (22.0-30.0); Chloride 104 mmol/L (98-107); Creatinine Clearance Estimated 101 mL/min (50-200); Estimated Glomerular Filt Rate 67 ml/min (>60); GFR (African American) 81 ML/MIN (>60); Glucose 86 mg/dl (74-100); Potassium 3.8 mmoL/L (3.5-5.1); Sodium 136 mmol/L (136-145)
[2021-05-19 13:04] LABS: Microscopic, Urine URINE MICROSCOPIC (MICROSCOPIC)
[2021-05-19 13:08] LABS: Appearance,Urine CLEAR (Clear); Bilirubin,Urine Negative (Negative); Blood, Urine 2+ (Negative); Color,Urine YELLOW (Yellow); Glucose,Urine (UA) Negative (Negative); Ketones,Urine Negative (Negative); Leukocyte Esterase,Urine Negative (Negative); Nitrate,Urine Negative (Negative); Protein,Urine Negative (Negative); Urobilinogen,Urine 0.2 EU/dl (0.2)
[2021-05-19 13:10] LABS: Urine Pregnancy, HCG Qual. Negative (Negative)
--- NOTE | 2021-05-19 13:21 | PC.NURSE ---
pt to radiology
[2021-05-19 13:24] LABS: Bacteria,Urine Trace /lpf; Squamous Epithelial Cell,Urine Occasional #/hpf (0-5); WBC,Urine Occasional #/hpf (0-3)
--- NOTE | 2021-05-19 14:13 | PC.NURSE ---
pt return from radiology
--- NOTE | 2021-05-19 14:13 | PC.NURSE ---
Pt returned from rad
--- NOTE | 2021-05-19 14:14 | PC.NURSE ---
rad staff gave verbal report on pt ultrasound
--- NOTE | 2021-05-19 14:52 | HMH.EDABDPAI ---
ED Disposition Clinical Impression: Fibroid Disposition: Home, Self-Care Condition on Discharge: Fair Instructions: DI for Acute Abdominal Pain Additional Instructions: You have a 3.5 x 2.7 cm Fibroid and 12 x 7 x 10 mm suspicious for an endometrial polyp. These follow-up with your primary care physician and to a artificial flowers starcher regarding your symptoms. Referrals: Cammie Stack PA [Primary Care Provider] - - Critical Care Critical Care Time: No Attestation: On 05/19/21, the high probability of a clinically significant, sudden or life threatening deterioration of the following system(s) required my full and direct attention, intervention and personal management. The time I documented below is in addition to time spent performing reported procedures but includes the following listed in this critical care notation. Medical Decision Making - Medical Records Medical records reviewed: Yes: I reviewed the patient's medical records. - Aron Inquiry Pt receiving controlled substance: No Aron was queried for this patient: No Vital Signs: 05/19/21 12:13 05/19/21 12:19 05/19/21 12:30 Temperature 98.1 F Temperature Source Oral Pulse Rate 67 57 L Pulse Rate [Right Radial] 63 Respiratory Rate 18 Blood Pressure 115/67 122/75 Blood Pressure [Right Arm] 115/67 Blood Pressure Mean [Right Arm] 83 Blood Pressure Source [Right Arm] Automatic Cuff Blood Pressure Position [Right Arm] Sitting 02 Sat by Pulse Oximetry 96 99 100 Oxygen Delivery Method Room Air - Lab Data Lab Results 05/19/21 12:25: WBC 5.9, RBC 4.37, Hgb 12.3, Hct 36.4 L, MCV 83.4, MCH 28.1, MCHC 33.7, RDW 14.3, Plt Count 285, MPV 7.4, Neut % (Auto) 58.7, Lymph % (Auto) 33.1, [place] % (Auto) 5.6, Eos % (Auto) 1.8, Baso % (Auto) 0.8, Neut # (Auto) 3.5, Lymph # (Auto) 2.0, [place] # (Auto) 0.3, Eos # (Auto) 0.1, Baso # (Auto) 0.1 05/19/21 12:25: Sodium 136, Potassium 3.8, Chloride 104, Carbon Dioxide 29, Anion Gap 6.8, BUN 15, Creatinine 0.90, Estimated Creat Clear 101, Estimated GFR 67, Est GFR ( Amer) 81, Glucose 86, Calcium 9.4, Total Bilirubin 0.3, AST 26, ALT 11 L, Alkaline Phosphatase 60, Total Protein 7.0, Albumin 4.0, Globulin 3.0, Albumin/Globulin Ratio 1.3 05/19/21 12:59: Urine Color Yellow, Urine Appearance Clear, Urine pH 7.0, Ur Specific [place] 1.020, Urine Protein Negative, Urine Glucose (UA) Negative, Urine Ketones Negative, Urine Blood 2+, Urine Nitrate Negative, Urine Bilirubin Negative, Urine Urobilinogen 0.2, Ur Leukocyte Esterase Negative, Urine RBC 5-10, Urine WBC Occasional, Ur Squamous Epith Cells Occasional, Urine Bacteria Trace 05/19/21 12:59: Urine HCG, Qual Negative Result diagrams: 05/19/21 12:25 05/19/21 12:25 Orders (Tests/Meds): ED MEDICATIONS Discontinued Medications Generic Name Dose Route Start Last Admin Trade Name Freq PRN Reason Stop Dose Admin Iopamidol 75 ml 05/19/21 13:25 05/19/21 13:25 Iopamidol-370 (76%);100ml Bottle IV 05/19/21 13:26 75 ml ONCE ONE Administration Morphine Sulfate 4 mg 05/19/21 13:15 05/19/21 13:23 Morphine 2mg/Ml Syringe IV 05/19/21 13:16 4 mg ONCE ONE Administration Sodium Chloride 10 ml 05/19/21 13:25 05/19/21 13:25 Sodium Chloride 0.9% 10ml Syr (Rad Only) IV 05/19/21 13:26 10 ml ONCE ONE Administration Medical Decision Narrative: Patient is a 46-year-old female with past medical history of hypertension, abnormal menstrual bleeding status post a thermal ablation presenting to the ED with abdominal pain. Patient is awake, alert, not in acute distress. Patient is hemodynamically stable, afebrile. Patient's physical exam is remarkable for tenderness to palpation in the right lower quadrant, suprapubic region. Differential includes but is not limited to rule cramping, fibroids, polyps, ovarian torsion, appendicitis. Lab work including CBC, CMP, lipase, lactate is performed, UA, urine is performed. CT abdomen pelv
[2021-05-19 15:13] VITALS: BP 130/71; PULSE 65; RESP 16; TEMP 36.7; O2SAT 100
== END 2021-05-19 15:13 | disposition home or self-care (01) ==
PROVIDERS: Emergency Provider Emergency Medicine; PCP Physician Assistant
DX: D26.1 Other benign neoplasm of corpus uteri (principal); K21.9 Gastro-esophageal reflux disease without esophagitis
CPT/HCPCS: 74177; 76830; 80053; 81001; 81025; 85025; 96374; 99283; Q9967

== ENCOUNTER → 2021-08-20 09:44 | Outpatient (CLI) | payer MEDICAID, SELFPAY ==
--- NOTE | 2021-08-20 09:44 | MM_ITS ---
PROCEDURE INFORMATION: Exam: MG Bilateral Screening 3D Mammography Exam date and time: 08/20/2021 9:44 AM Age: 46 years old Clinical indication: Encounter for screening mammogram for malignant neoplasm of breast. Paternal and maternal aunt with breast cancer. TECHNIQUE: Imaging protocol: Bilateral Screening tomosynthesis and 2D mammography including computer-aided detection (CAD) when performed. COMPARISON: 1. MG MM DIG SCREENING MAMM BI W/CAD 07/21/2020 8:06 AM 2. MG MM DIG MAMM DX UNILAT LT CAD 09/23/2019 9:41 AM 3. MG MM DIG SCREENING MAMM BI W/CAD 02/26/2019 9:22 AM 4. MG [facility] MAMMO SCREENING BILATERAL 02/24/2016 11:00 AM FINDINGS: MAMMOGRAPHY: Breast composition: The breast tissue is heterogeneously dense, which may obscure small masses. Mass: None. Architectural distortion: None. Calcifications: No suspicious calcifications. Asymmetric density: None. Skin thickening: None. Axillary adenopathy: None. IMPRESSION: No mammographic evidence of malignancy. Annual screening is recommended unless otherwise clinically indicated. ASSESSMENT: BI-RADS Category 1: Negative
== END ==
PROVIDERS: PCP Physician Assistant; Visit Provider Obstetrics & Gynecology
DX: Z12.31 Encounter for screening mammogram for malignant neoplasm of breast (principal)
CPT/HCPCS: 77063; 77067

== ENCOUNTER → 2021-09-13 13:19 | Outpatient (CLI) | payer MEDICAID, SELFPAY ==
[2021-09-13 13:44] LABS: Urine Pregnancy, HCG Qual. Negative (Negative)
== END ==
PROVIDERS: PCP Physician Assistant; Visit Provider Internal Medicine Gastroenterology
DX: Z01.812 Encounter for preprocedural laboratory examination (principal); Z11.52 Encounter for screening for COVID-19; Z12.11 Encounter for screening for malignant neoplasm of colon; Z80.0 Family history of malignant neoplasm of digestive organs
CPT/HCPCS: 81025; C9803; U0003; U0005

== ENCOUNTER 2021-09-15 08:18 | Day surgery (SDC) | payer MEDICAID, SELFPAY ==
[2021-09-02 12:30] VITALS: BMI 31.2
[2021-09-15] VITALS (7 sets, daily range): BP systolic 102–117; BP diastolic 49–75; PULSE 60–73; RESP 18; TEMP 36.2–36.3; O2SAT 92–100
[2021-09-15 09:01] LABS: Urine Pregnancy, HCG Qual. Negative (Negative)
--- NOTE | 2021-09-15 09:30 | P.PN_ITS ---
[facility] Anesthesia Checklist - Patient Identification Patient Identification: Arm Band, Verbal (Name & ) - Structural Data Admitted From: Home Planned Operative Procedure/s: Colonoscopy Consent for Planned Operative Procedure(s) Verified: Yes Verified Documents: Surgical Consent - Additional verifications Anesthesia Reactions: No Hx Blood Transfusions: No Blood Transfusion Reaction: No - Airway Assessment C-Spine Mobility Assessed: Yes TMJ Mobility Assessed: Yes Dentition: Good Dentition - Neurological Assessment Level of Consciousness: Awake, Alert, Appropriate - Anesthesia Plan Anesthesia Risk discussed: Yes ASA Class: II Anesthesia Type: MAC [facility] History I have reviewed the patient's past medical history: Yes Medical History: Reports:: Gastroesophageal Reflux Disease(GERD) Denies:: Cancer, Diabetes Mellitus Type 1, Diabetes Mellitus Type 2, Internal Pacemaker, MRSA, Seizures *Have you ever received a pneumonia vaccine?: No *Have you received a flu vaccine this season?: No Other Medical History: Denies: Blood Transfusion Reaction Anesthesia experience/problems:: none Other Surgeries: Yes: Cholecystectomy, Tubal Ligation. No: Pacemaker Amputation: No Fractures: No - *Social History Last grade of school completed: Some college Smoking Status: Never smoker Alcohol Intake: current Alcohol Intake Frequency:: holidays/special occasions only Substance Use Type: denies use *Occupational Status:: employed Housing: house Household Members: spouse *Travel in the last 8 weeks: None Family Hx:: Cancer, Diabetes
--- NOTE | 2021-09-15 09:55 | HMH.SCOPE ---
- Procedure: Date: 09/15/21 Patient Date of :: 1975 Procedure Performed:: Colonoscopy Indications:: The patient is a 46 year old who presents for first screening colonoscopy. There is a family history of colon cancer in a first degree relative (Father). Performing Provider:: Curly Vaughn MD Referring Provider:: Cammie Stack APRN Sedation:: See RN notes Procedure:: After placing the patient in the left lateral decubitus position, the colonoscopy was gently inserted into the rectum and under direct visualization advanced to the cecum which was identified by transillumination in the right lower quadrant, identification of the ileocecal valve, appendiceal orifice, and cecal strap. Color, texture, mucosa, and anatomy of the colon were carefully examined with the scope. Findings:: Anal canal: normal Rectum: Internal hemorrhoids. Sessile polyp less than 5 mm in size. Removed with snare polypectomy. Sigmoid colon: normal without polyps or inflammatory changes Descending colon: normal without polyps or inflammatory changes Splenic flexure: normal Transverse colon: normal without polyps or inflammatory changes Hepatic flexure: normal Ascending colon: normal without polyps or inflammatory changes Cecum: normal Terminal ileum: not visualized Recommendations:: Await pathology results Repeat colonoscopy in 3 years Complications:: None Estimated blood obtained (mL): 0
== END 2021-09-15 10:56 | disposition home or self-care (01) ==
PROVIDERS: PCP Physician Assistant; Visit Provider Internal Medicine
PROC: 0DJD8ZZ Inspection of Lower Intestinal Tract, Via Natural or Artificial Opening Endoscopic (ICD-10-PCS; CPT 45378; principal; 2021-09-15 09:30)
DX: Z12.11 Encounter for screening for malignant neoplasm of colon (principal); Z80.0 Family history of malignant neoplasm of digestive organs; K62.1 Rectal polyp; K64.9 Unspecified hemorrhoids; K21.9 Gastro-esophageal reflux disease without esophagitis; Z90.49 Acquired absence of other specified parts of digestive tract; Z83.3 Family history of diabetes mellitus; Z98.51 Tubal ligation status; Z79.899 Other long term (current) drug therapy
CPT/HCPCS: 45385; 81025

== ENCOUNTER 2022-05-10 22:10 | Emergency (ER) | payer MEDICAID, SELFPAY ==
[2022-05-10 22:12] VITALS: BP 136/77; PULSE 84; RESP 16; TEMP 36.8; O2SAT 99; BMI 25.8
--- NOTE | 2022-05-10 23:16 | PC.NURSE ---
Dr. Ham at BS to suture
--- NOTE | 2022-05-10 23:23 | HMH.EDUPEXT ---
Discharge Plan Disposition Patient Disposition: Home, Self-Care Chief Complaint: Extremity Injury, Upper Prescriptions Prescriptions: No Action ropinirole 0.5 mg tablet 0.5 mg PO HS Qty: 60 2RF Rx Instructions: 1 or 2 QHS dextroamphetamine-amphetamine [Adderall XR] 20 mg capsule,extended release 24hr 20 mg PO DAILY Qty: 30 0RF linaclotide 145 MCG capsule 145 mcg PO DAILY Referrals Follow up/Referrals: Cammie Stack PA [Primary Care Provider] - See instructions Clinical Impressions Clinical Impression: Finger laceration Instructions Patient Instructions: DI for Laceration Repair -- Simple Discharge ED Provider: Remy Ham Upper Extremity HPI General Chief Complaint: Extremity Injury, Upper Stated Complaint: AO 05/10 Left middle finger lac Time Seen by Provider: 05/10/22 23:23 Mode of Arrival: Family Vehicle Source of Information: Patient, Spouse and Medical Record Limitations: No Limitations Description of Symptoms (Recalled from ER Triage Doc. by RN): Pt c/o small laceration to her middle finger of L hand. States it was a broken metal broom handle. Last tetanus is 7yr ago. Pt cleansed the wound with peroxide COATER SMOKING PIPE. This occured at 1500 today. History of Present Illness HPI narrative: laceration to lt middle finger dorsal at pip jt complaint: injury to: left and finger Onset (ago): hour(s) Other Extremity Injury: Left: fingers Other injuries: none Handedness: right Place: home Severity: moderate Context: laceration Associated symptoms: denies other symptoms Related Data Home Medications Medication Instructions Recorded Confirmed linaclotide 145 mcg capsule 145 mcg PO DAILY bowels 09/02/21 04/13/22 Previous Rx's Medication Instructions Recorded ropinirole 0.5 mg tablet 0.5 mg PO HS #60 tabs 03/17/22 dextroamphetamine-amphetamine ER 20 mg PO DAILY #30 caps 05/03/22 20 mg 24hr capsule,extend release (Adderall XR) Allergies Allergy/AdvReac Type Severity Reaction Status Date / Time No Known Allergies Allergy Verified 04/13/22 08:37 [facility] Medical History (Updated 05/10/22 @ 23:32 by Remy Ham MD) Constipation Insomnia Social History Smoking Status: Never smoker alcohol intake: current substance use type: denies use current occupational status: employed Travel in the last 8 weeks: None household members: spouse housing: house 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 current occupational exposures/hazards: Yes caffeine: No ROS Obtained: Yes All systems reviewed & no additional complaints except as documented Physical Exam General General appearance: alert Head Head exam: normocephalic Eye Eye exam: Present PERRL and EOMI ENT ENT exam: Present mucous membranes moist Neck Neck exam: Present full ROM Respiratory Respiratory exam: Absent respiratory distress Cardiovascular Cardiovascular exam: Present regular rate Expanded Upper Extremity Exam Left: Hand exam: Present laceration and other (neurovascular and tendon ok ) Neurological Exam Neurological exam: Present alert, oriented X3 and CN II-XII intact Skin Skin exam: Absent rash Medical Decision Making Medical Records Medical records reviewed: Yes I reviewed the patient's medical records. Aron Inquiry Pt receiving controlled substance: No Vital Signs: 05/10/22 22:12 Temperature 98.2 F Temperature Source Oral Pulse Rate [Right] 84 Respiratory Rate 16 Blood Pressure [Right Arm] 136/77 Blood Pressure Mean [Right Arm] 96 Blood Pressure Source [Right Arm] Automatic Cuff 02 Sat by Pulse Oximetry 99 Oxygen Delivery Method Room Air Lab Data Lab results reviewed: Yes I reviewed the patient's lab results. Orders (Tests/Meds): ED MEDICATIONS Generic Name Dose Route Start Last Admin Trade Name Freq PRN Reason Stop Dose Admin Tetanus/Reduced Diphtheria/Acell Pertussis 0.5 ml 1
--- NOTE | 2022-05-10 23:25 | PC.NURSE ---
pt had declined tdap. MD cuello
[2022-05-10 23:28] VITALS: BP 135/78; PULSE 63; RESP 18; TEMP 36.6; O2SAT 98
== END 2022-05-10 23:37 | disposition home or self-care (01) ==
PROVIDERS: Emergency Provider Emergency Medicine; PCP Physician Assistant
DX: S61.213A Laceration without foreign body of left middle finger without damage to nail, initial encounter (principal); G47.00 Insomnia, unspecified; K59.00 Constipation, unspecified; Z23 Encounter for immunization
CPT/HCPCS: G0168; 90471; 99284

== ENCOUNTER 2022-10-15 11:38 | Emergency (ER) | payer BC, MEDICAID, SELFPAY ==
[2022-10-15 11:44] VITALS: BP 120/71; PULSE 74; RESP 18; TEMP 36.8; O2SAT 99; BMI 30.7
--- NOTE | 2022-10-15 12:26 | EXP.UTC ---
Discharge Plan Disposition Patient Disposition: Home, Self-Care Condition: Good Prescriptions Prescriptions: New triamcinolone acetonide 0.5 % cream 1 applic topical TID Qty: 30 0RF No Action Mydayis 25 mg capsule, ER triphasic 24 hr 25 mg PO DAILY Qty: 30 0RF Referrals Follow up/Referrals: Cammie Stack PA [Primary Care Provider] - See instructions Clinical Impressions Clinical Impression: Contact dermatitis and other eczema due to plants (except food) Instructions Patient Instructions: DI for Contact Dermatitis Discharge ED Provider: Kari Fortune [facility] [place] HPI General Stated complaint: Rash on legs/ankles Mode of Arrival: Ambulatory Source of Information: Patient Limitations: No Limitations Time Seen by Provider: 10/15/22 12:25 Description of Symptoms (Recalled from Triage Doc. by RN): pt c/o a rash that appears as little spots scattered bilaterally on her legs with the majority on the lower portion of her legs. pt states it itches. pt states this has been ongoing x2wks after weed eating. HEENT Symptoms (Recalled from RN notes): No Resp Symptoms (Recalled from RN notes): No Skin Symptoms (Recalled from RN notes): Yes MS Symptoms (Recalled from RN notes): No Functional Status (Recalled from RN notes): wnl History of Present Illness Provider Complaint: Pt states that after weed eating she started getting an itchy rash on both of her lower legs. She states that she has used calamine lotion and alcohol, but this has not helped. Related Data Previous Rx's Medication Instructions Recorded dextroamphetamine-amphetamine ER 25 mg PO DAILY #30 ea 10/04/22 25 mg capsule,3 bead,ext release 24hr (Mydayis) triamcinolone acetonide 0.5 % 1 applic topical TID #30 grams 10/15/22 topical cream Allergies Allergy/AdvReac Type Severity Reaction Status Date / Time No Known Allergies Allergy Verified 10/15/22 11:54 Worker's Comp Is this a Worker's Comp case?: No [facility] Disclaimer: The information contained in this section may have been updated after the patient was seen, as this information can be updated by other users. 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 [employer] current occupational exposures/hazards: Yes caffeine: No ROS Obtained: Yes All systems reviewed & no additional complaints except as documented Constitutional Constitutional: Reports system reviewed and no additional complaints, except as documented Eyes Eyes: Reports system reviewed and no additional complaints, except as documented ENT Ears, Nose, Mouth, and Throat: Reports system reviewed and no additional complaints, except as documented Cardiovascular Cardiovascular: Reports system reviewed and no additional complaints, except as documented Respiratory Respiratory: Reports system reviewed and no additional complaints, except as documented Gastrointestinal Gastrointestingal: Reports system reviewed and no additional complaints, except as documented Genitourinary Female Genitourinary: Reports system reviewed and no additional complaints, except as documented Musculoskeletal Musculoskeletal: Reports system reviewed and no additional complaints, except as documented Integumentary/Breasts Skin/Breast: Reports system reviewed and no additional complaints, except as documented and Reports rash Comments: bilateral lower legs Neurologic Neurologic: Reports system reviewed and no additional complaints, except as documented Endocrine
[2022-10-15 12:39] VITALS: BP 120/71; PULSE 74; RESP 18; TEMP 36.8
== END 2022-10-15 12:42 | disposition home or self-care (01) ==
PROVIDERS: Emergency Provider Nurse Practitioner Family; PCP Physician Assistant
DX: L25.5 Unspecified contact dermatitis due to plants, except food (principal)
CPT/HCPCS: 99212; 99214; G0463

== ENCOUNTER → 2022-11-17 15:03 | Outpatient (CLI) | payer BC, MEDICAID, SELFPAY ==
[2022-11-17 16:32] LABS: Basophils % 0.3 % (0.1-2.0); Eosinophils # 0.1 K/mm3 (0.0-0.4); Eosinophils % 1.7 % (0.1-12.0); Hemoglobin 12.7 g/dL (12.2-16.2); Lymphocytes # 2.1 K/mm3 (0.7-4.5); Lymphocytes % 29.2 % (10-50); Mean Corpuscular HGB Conc 31.8 g/dL (31.8-35.4); Mean Corpuscular Hemoglobin 27.9 pg (27.0-31.2); Mean Corpuscular Volume 87.8 fl (81-99); Mean Platelet Volume 7.8 fl (7.4-10.4); Monocytes # 0.3 K/mm3 (0.1-1.0); Monocytes % 4.6 % (1.7-9.3); Neutrophils # 4.5 K/mm3 (1.8-7.8); Neutrophils % 64.2 % (37.0-80.0); Platelet Count 299 K/mm3 (142-424); Red Blood Count 4.56 M/mm3 (4.20-5.40); Red Cell Distribution Width 13.6 % (11.5-17.5)
[2022-11-17 16:53] LABS: Alanine Aminotransferase 16 U/L (12-78); Albumin Level 4.3 g/dl (3.5-5.0); Albumin/Globulin Ratio 1.6 (1.1-1.8); Alkaline Phosphatase 75 U/L (38-126); Anion Gap 12.2 mEq/L (5-15); Aspartate Amino Transferase 25 U/L (14-36); Bilirubin,Total 0.2 mg/dl (0.2-1.3); Blood Urea Nitrogen 20 mg/dl (7-17); Calcium 8.9 mg/dl (8.4-10.2); Carbon Dioxide 27 mmol/L (22.0-30.0); Chloride 103 mmol/L (98-107); Chol/HDL Ratio 3.3 (1-3.5); Cholesterol 174 mg/dl (140-200); Estimated Glomerular Filt Rate 67 ml/min (>60); GFR (African American) 81 ML/MIN (>60); Globulin 2.7 g/dL (1.3-3.2); Glucose 81 mg/dl (74-100); HDL Cholesterol 52 mg/dl (40-60); Potassium 4.2 mmoL/L (3.5-5.1); Sodium 138 mmol/L (136-145); Triglycerides 157 mg/dl (30-150); VLDL Cholesterol 31 mg/dL (0-40)
[2022-11-17 17:04] LABS: Direct LDL Cholesterol 97.18 mg/dL (100-129)
[2022-11-17 17:11] LABS: 25-OH Vitamin D, Total 29.1 ng/mL (30-100)
[2022-11-17 17:12] LABS: HCG,Quantitative < 2 mIU/ml (0-5.42)
[2022-11-17 17:24] LABS: Thyroid Stimulating Hormone 0.64 uIU/mL (0.465-4.68)
== END ==
PROVIDERS: PCP Physician Assistant; Visit Provider Obstetrics & Gynecology
DX: Z00.00 Encounter for general adult medical examination without abnormal findings (principal); R10.2 Pelvic and perineal pain; E55.9 Vitamin D deficiency, unspecified
CPT/HCPCS: 36415; 80053; 80061; 82306; 84443; 84702; 85025

== ENCOUNTER → 2023-04-04 14:51 | Outpatient (CLI) | payer BC, MEDICAID, SELFPAY ==
--- NOTE | 2023-04-04 14:55 | US_ITS ---
PROCEDURE: US TRANSVAGINAL CLINICAL INDICATION: abnormal uterine bleeding and pelvic pain COMPARISON: No exams were available for comparison FINDINGS: Transvaginal l sonographic images of the pelvis were obtained. UTERUS: 9.3 cm x 4.5 cmx 5.2 cm with a combined endometrial thickness of 13.3mm. There is a small fluid-filled area within the endometrial cavity. It measures 4 mm x 9 mm. There are multiple nabothian cysts the largest of which measures 1.3 cm. LEFT OVARY: 2.8 cmx1.6 cmx1.5cm with a volume of 3.6ml. There are multiple small follicles. The largest measures 8.4 mm. RIGHT OVARY: 2.4 cmx 1.8 cmx2.1 cm with a volume of 4.8ml. There are multiple small follicles, the largest measures 1.4 cm. Both ovaries are seen and appear normal. Doppler flow to both ovaries are seen. There is no fluid in the cul-de-sac. IMPRESSION: 1. Anteverted bulky uterus. 2. The endometrium is difficult to evaluate but measures up to 13 mm. 3. There is a small collection of fluid within the endometrial cavity. 4. Both ovaries are seen and appear normal. Both ovaries have small follicles. 5. No fluid in the cul-de-sac. Dictated by: Freddy Pozo MD 04/04/2023 17:12 Freddy Pozo MD in [place] 04/04/2023 17:12
--- NOTE | 2023-04-04 14:55 | MM_ITS ---
PROCEDURE INFORMATION: Exam: MG Bilateral Screening 3D Mammography Exam date and time: 04/04/2023 3:35 PM Age: 47 years old Clinical indication: Encounter for screening mammogram for malignant neoplasm of breast. Paternal aunt and maternal aunts with breast cancer. TECHNIQUE: Imaging protocol: Bilateral Screening tomosynthesis and 2D mammography including computer-aided detection (CAD) when performed. COMPARISON: 1. MG MM DIG SCREENING MAMM BI W/CAD 08/20/2021 9:58 AM 2. MG MM DIG SCREENING MAMM BI W/CAD 07/21/2020 8:06 AM 3. MG MM DIG MAMM DX UNILAT LT CAD 09/23/2019 9:41 AM 4. MG MM DIG SCREENING MAMM BI W/CAD 02/26/2019 9:22 AM FINDINGS: MAMMOGRAPHY: Breast composition: The breasts are heterogeneously dense, which may obscure small masses. Mass: None. Architectural distortion: None. Calcifications: No suspicious calcifications. Asymmetric density: None. Skin thickening: None. Axillary adenopathy: None. IMPRESSION: No mammographic evidence of malignancy. Annual screening is recommended unless otherwise clinically indicated. ASSESSMENT: BI-RADS Category 1: Negative
== END ==
PROVIDERS: PCP Physician Assistant; Visit Provider Obstetrics & Gynecology
DX: Z12.31 Encounter for screening mammogram for malignant neoplasm of breast (principal); N93.9 Abnormal uterine and vaginal bleeding, unspecified; R10.2 Pelvic and perineal pain
CPT/HCPCS: 76830; 77063; 77067

== ENCOUNTER → 2023-04-18 10:22 | Outpatient (POV) | payer BC, MEDICAID, SELFPAY | PROVIDERS: Visit Provider Specialist/Technologist | DX: Z00.00 Encounter for general adult medical examination without abnormal findings (principal) ==

== ENCOUNTER 2023-04-22 10:25 | Emergency (ER) | payer BC, MEDICAID, SELFPAY ==
[2023-04-22 10:45] VITALS: BP 130/78; PULSE 93; RESP 19; TEMP 37.1; O2SAT 98; BMI 32.5
--- NOTE | 2023-04-22 11:01 | EXP.UTC ---
Discharge Plan Disposition Patient Disposition: Home, Self-Care Condition: Good Prescriptions Prescriptions: New methylprednisolone [Medrol (Porter)] 4 mg tablets,dose pack See Rx Instructions .Route .COMPLEX 6 Days Qty: 21 0RF Rx Instructions: taper pack; amoxicillin-pot clavulanate 875-125 mg Tablet 1 tab PO Q12H 7 Days Qty: 14 0RF No Action dextroamphetamine-amphetamine [Mydayis] 25 mg capsule, ER multiphase 24 hr 25 mg PO DAILY ropinirole 0.5 mg tablet 0.5 mg PO HS Patient Comments: TAKE 1 TABLET BY MOUTH AT BEDTIME NIGHTLY omeprazole 20 mg capsule,delayed release(DR/EC) 40 mg PO DAILY Patient Comments: TAKE 2 CAPSULES BY MOUTH ONCE DAILY levocetirizine 5 mg tablet 5 mg PO DAILY Patient Comments: TAKE 1 TABLET BY MOUTH ONCE DAILY Referrals Follow up/Referrals: Cammie Stack PA [Primary Care Provider] - See instructions Activity Restrictions/Add. Instructions Additional Instructions/Restrictions: *Monitor Temp, Over the counter Motrin or Tylenol as directed/as needed Tylenol every 4 hours and Motrin every 6 hours (as long as your family doctor has told you that you can take it) for fever or pain. and straight to ER if unable to lower temp less than 101.0 after medication given *Warm salt water gargles may help to soothe the throat *Throat Lozenges? *Warm fluids like tea with honey may help to soothe the throat? *Sleep elevated *Humidifier/Vaporizer Take medication as prescribed Follow up IMMEDIATELY for new or worsening symptoms or no Noticeable improvement over the next 48-72 hours. 911 for difficulty breathing or swallowing Clinical Impressions Clinical Impression: Sinusitis Qualifiers: Sinusitis location: unspecified location Chronicity: unspecified Qualified Code(s): J32.9 - Chronic sinusitis, unspecified Instructions Patient Instructions: DI for Sinusitis, Sinusitis Discharge ED Provider: Shelli Farrar [facility] General Stated complaint: cough, congestion Mode of Arrival: Ambulatory Source of Information: Patient Limitations: No Limitations Time Seen by Provider: 04/22/23 11:02 Description of Symptoms (Recalled from Triage Doc. by RN): PATIENT C/O COUGH, NASAL CONGESTION, AND EAR ACHE X 1 WEEK HEENT Symptoms (Recalled from RN notes): Yes Resp Symptoms (Recalled from RN notes): Yes Skin Symptoms (Recalled from RN notes): No MS Symptoms (Recalled from RN notes): No Functional Status (Recalled from RN notes): WNL History of Present Illness Provider Complaint: Patient states that she has been having sinus congestion and pressure, pain and pressure in both ears, cough and hearing a popping nose in her ears when she swallows States that she seen ENT earlier in the week but it has got worse since then and today she was feeling worse so she came in to get it checked Related Data Home Medications Medication Instructions Recorded Confirmed dextroamphetamine-amphetamine ER 25 mg PO DAILY ADHD 04/22/23 04/22/23 25 mg capsule,3 bead,ext release 24hr (Mydayis) levocetirizine 5 mg tablet 5 mg PO DAILY 04/22/23 04/22/23 omeprazole 20 mg capsule,delayed 40 mg PO DAILY 04/22/23 04/22/23 release ropinirole 0.5 mg tablet 0.5 mg PO HS 04/22/23 04/22/23 Previous Rx's Medication Instructions Recorded amoxicillin 875 mg-potassium 1 tab PO Q12H 7 days #14 tabs 04/22/23 clavulanate 125 mg tablet methylprednisolone 4 mg tablets in See Rx Instructions .Route 04/22/23 a dose pack (Medrol (Porter)) .COMPLEX 6 days #21 tabs Allergies Allergy/AdvReac Type Severity Reaction Status Date / Time No Known Allergies Allergy Verified 04/19/23 13:06 Worker's Comp Is this a Worker's Comp case?: No [facility] Disclaimer: The information contained in this section may have been updated after the patient was seen, as this information can be updated by other users. Medical History (Reviewed
[2023-04-22 11:11] VITALS: BP 130/78; PULSE 93; RESP 19; TEMP 37.1; O2SAT 98
== END 2023-04-22 11:14 | disposition home or self-care (01) ==
PROVIDERS: Emergency Provider Nurse Practitioner; PCP Physician Assistant
DX: J01.90 Acute sinusitis, unspecified (principal); R09.81 Nasal congestion; R05.9 Cough, unspecified; H92.03 Otalgia, bilateral
CPT/HCPCS: 99212; 99214; G0463

== ENCOUNTER → 2023-05-26 10:51 | Outpatient (CLI) | payer BC, MEDICAID, SELFPAY ==
[2023-05-28 23:28] LABS: HSV 1 IgG, Type Spec 3.69; HSV 2 IgG, Type Spec 6.36
[2023-05-29 13:49] LABS: Alanine Aminotransferase 14 U/L (12-78); Albumin/Globulin Ratio 1.3 (1.1-1.8); Alkaline Phosphatase 65 U/L (38-126); Anion Gap 7.8 mEq/L (5-15); Aspartate Amino Transferase 25 U/L (14-36); Bilirubin,Total 0.3 mg/dl (0.2-1.3); Blood Urea Nitrogen 15 mg/dl (7-17); Calcium 8.5 mg/dl (8.4-10.2); Carbon Dioxide 28 mmol/L (22.0-30.0); Chloride 105 mmol/L (98-107); Estimated Glomerular Filt Rate 67 ml/min (>60); GFR (African American) 81 ML/MIN (>60); Globulin 3.1 g/dL (1.3-3.2); Glucose 83 mg/dl (74-100); Potassium 3.8 mmoL/L (3.5-5.1); Sodium 137 mmol/L (136-145); Total Protein,Serum 7.1 g/dl (6.3-8.2)
[2023-05-29 14:23] LABS: HCG,Quantitative < 2 mIU/ml (0-5.42)
== END ==
PROVIDERS: PCP Physician Assistant; Visit Provider Obstetrics & Gynecology
DX: N89.8 Other specified noninflammatory disorders of vagina (principal); N93.8 Other specified abnormal uterine and vaginal bleeding
CPT/HCPCS: 36415; 80053; 84702; 86695; 86790

== ENCOUNTER 2023-06-01 06:12 | Observation (INO) | payer BC, MEDICAID, SELFPAY ==
[2023-05-29 13:06] VITALS: BMI 32.5
[2023-06-01] VITALS (25 sets, daily range): BP systolic 105–152; BP diastolic 42–86; PULSE 61–100; RESP 15–25; TEMP 36.4–43; O2SAT 91–100
[2023-06-01] MEDS: LACTATED RINGERS 1000ML 1,000 ML 100 ML IV (06:19)
[2023-06-01 06:33] LABS: Basophils # 0.1 K/mm3 (0-0.2); Basophils % 0.8 % (0.1-2.0); Eosinophils # 0.1 K/mm3 (0.0-0.4); Eosinophils % 1.8 % (0.1-12.0); Hematocrit 40.2 % (37.0-47.0); Hemoglobin 13.5 g/dL (12.2-16.2); Lymphocytes # 1.9 K/mm3 (0.7-4.5); Mean Corpuscular HGB Conc 33.6 g/dL (31.8-35.4); Mean Corpuscular Hemoglobin 29.8 pg (27.0-31.2); Mean Corpuscular Volume 88.5 fl (81-99); Mean Platelet Volume 7.6 fl (7.4-10.4); Monocytes # 0.3 K/mm3 (0.1-1.0); Neutrophils % 62.5 % (37.0-80.0); Platelet Count 274 K/mm3 (142-424); Red Blood Count 4.54 M/mm3 (4.20-5.40); Red Cell Distribution Width 13.5 % (11.5-17.5); White Blood Count 6.3 K/mm3 (4.8-10.8)
--- NOTE | 2023-06-01 07:10 | EXP.ANES.CKL ---
[facility] Disclaimer: The information contained in this section may have been updated after the patient was seen, as this information can be updated by other users. Medical History Chronic eustachian tube dysfunction Constipation Fibrocystic breast History of anemia History of COVID-19 History of gastroesophageal reflux (GERD) Hoarseness Insomnia Kidney stone Otitis media Urinary tract infection Surgical History History of cholecystectomy History of tubal ligation S/P endometrial ablation Family History Other Family history of cancer Family history of diabetes mellitus type II Family history of hypertension Social History Smoking Status: Never smoker alcohol intake: current substance use type: denies use current occupational status: employed Travel in the last 8 weeks: None household members: spouse housing: house 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 current occupational exposures/hazards: Yes caffeine: Yes [facility] Anesthesia Checklist Patient Identification Patient Identification: Arm Band and Verbal (Name & ) Structural Data Admitted From: Home Planned Operative Procedure/s: Vaginal hysterectomy Consent for Planned Operative Procedure(s) Verified: Yes NPO Status Verified Time NPO: 00:00 Chart Verification Results Verified: CBC and HCG Additional verifications Anesthesia Reactions: No Hx Blood Transfusions: No Blood Transfusion Reaction: No Airway Assessment Mallampati Score:: Class I C-Spine Mobility Assessed: Yes TMJ Mobility Assessed: Yes Dentition: Good Dentition Neurological Assessment Level of Consciousness: Awake Hx Seizures: No Numbness or tingling in extremities: No Anesthesia Plan Anesthesia Risk discussed: Yes Anesthesia Plan: Verified ASA Class: II Anesthesia Type: General
[2023-06-01] MEDS: CEFAZOLIN SODIUM 1 GM in 0.9 % SODIUM CHLORIDE 50 ML IV (07:15)
[2023-06-01] MEDS: METHYLENE BLUE 0.5% 10ML AMPULE 50 MG IV (07:30)
[2023-06-01] MEDS: LIDOCAINE 1% W/EPI 1:100,000 20ML VIAL 20 ML (07:43)
--- NOTE | 2023-06-01 08:29 | SUR.OPER ---
pt received addition Cefazolin 1gm in the operating room per surgeon@ 0745 by anesthesia
--- NOTE | 2023-06-01 09:38 | EXP.ANES.I ---
[facility] Anesthesia Record Part I Anesthesia Record I Intake, IV Amount: 600 Hydration: Adequate Estimated blood loss (mL): 200 Urine output (mL): 50 Blood Pressure: 150/75 SaO2: 98 Pulse Rate: 100 Airway Patency: Patent Respiratory Rate: 25 Temperature: 98.2 F Patient is:: Awake Stable to PACU at:: 09:35
[2023-06-01] MEDS: HYDROMORPHONE 2MG/ML SYRINGE 0.5 MG IV ×3 (10:05→10:20)
--- NOTE | 2023-06-01 10:12 | P.HP_ITS ---
History of Present Illness *Admission Date: 06/01/23 *Reason for visit:: Hysterectomy *History of present illness: Lucina Pasotr is a 48-year-old -0-1-7 who is presenting for a total vaginal hysterectomy with right salpingo-oophorectomy and cystoscopy. Possible total abdominal hysterectomy -Hysterectomy indicated for pelvic pain is been ongoing for 2 years. She had an ablation in 2020 with benign pathology. Reports that her bleeding stopped for about 2-3 months and then she started having heavy menses again. The pelvic pain is significantly worse on the right. She is currently taking 800 mg of ibuprofen every 8 hours and still having significant debilitating pain that prevents her from doing her daily activities of living. The pain disturbs her lifestyle. She is been evaluated in the ED several times for this pain. -Patient has a history of a cryo or LEEP she does not remember which. Most recently her Pap smears have been normal. She denies any postcoital bleeding. [facility] Disclaimer: The information contained in this section may have been updated after the patient was seen, as this information can be updated by other users. Medical History Chronic eustachian tube dysfunction Constipation Fibrocystic breast History of anemia History of COVID-19 History of gastroesophageal reflux (GERD) Hoarseness Insomnia Kidney stone Otitis media Urinary tract infection Surgical History History of cholecystectomy History of tubal ligation S/P endometrial ablation Family History Other Family history of cancer Family history of diabetes mellitus type II Family history of hypertension Social History Smoking Status: Never smoker alcohol intake: current substance use type: denies use current occupational status: employed Travel in the last 8 weeks: None household members: spouse housing: house 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 Denies nausea, vomiting. Genitourinary: Denies dysuria and incontinence Musculoskeletal: Denies shoulder pain and back pain Neurological: Denies change in speech or headaches Meds Home Medications and Allergies Home Medications Medication Instructions Recorded Confirmed Type omeprazole 20 mg capsule,delayed 20 mg PO DAILY 04/22/23 06/01/23 History release ropinirole 1 mg tablet 1 mg PO HS #30 tabs 05/24/23 06/01/23 Rx azelastine 137 mcg (0.1 %) nasal 1 spray intranasal DAILYP PRN 05/25/23 06/01/23 History spray aerosol allergies dextroamphetamine-amphetamine ER 25 mg PO DAILY 05/29/23 05/29/23 History 25 mg capsule,3 bead,ext release 24hr (Mydayis) valacyclovir 500 mg tablet 500 mg PO NEEDED PRN Outbreak 06/01/23 06/01/23 History New Prescriptions to Start Prescriptions: Allergies Allergy/AdvReac Type Severity Reaction Status Date / Time No Known Allergies Allergy Verified 06/01/23 06:20 Exam Data for Last 24 hours Vital signs and Labs for Last 24 Hours: Temp Pulse Resp BP Pulse Ox O2 Del Method 98.2 F 88 18 148/82 H 98 Room Air 06/01/23 09:39 06/01/23 10:02 06/01/23 10:02 06/01/23 10:02 06/01/23 10:02 06/01/23 10:02 Laboratory Results - last 24 hr 06/01/23 06:25: WBC 6.3, RBC 4.54, Hgb 13.5, Hct 40.2, MCV 88.5, MCH 29.8, MCHC 33.6, RDW 13.5, Plt Count 274, MPV 7.6, Neut % (Auto) 62.5, Lymph % (Auto) 30.0, [place] % (Auto) 5.0, Eos % (Auto) 1.8, Baso % (Auto) 0.8, Neut # (Auto) 4.0, Lymph # (Auto) 1.9, [place] # (Auto) 0.3, Eos # (Auto) 0.1, Baso # (Auto) 0.1, Blood Type A Negative, Antibody Screen Negative I & O for Last 24 hours: Intake & Output 05/29/23 05/30/23 05/31/23 06/01/23 23:59 23:59 23:59 23:59 Intake Total 600 / 600 Balance 600 / 600 Weight 190 lb Constitutional Constitutional: no acute distress *Routine HEENT Exam Head: Present normocephalic Eye: Present EOMI and PERRL ENT: Present mucous membranes moist *Routine Neck Exam Neck: Present supple; Absent lymphadenopathy *Routine Respiratory Exam Respiratory: Present CTA bilaterally *Routine Cardiovascular Exam Cardiovascular: Present RRR *Routine Abdominal Exam Abdominal: Present soft and normoactive bowel sounds; Absent tenderness *Routine Rectal Exam Rectal:: deferred *Routine Genitalia Exam Genitalia:: deferred *Routine Extremities Exam Extremities: Absent cyanosis, clubbing or edema *Routine Skin Exam Skin: Present warm; Absent rash *Routine Neurological Exam Neurological: Present alert and oriented X3 Assessment and Plan *Assessment and plan (1) Polyp of corpus uteri: Status: Acute Category: Medical Code(s): N84.0 - Polyp of corpus uteri (2) Pelvic pain in female: Status: Acute Category: Medical Code(s): R10.2 - Pelvic and perineal pain (3) Dyspareunia: Status: Acute Category: Medical (4) S/P endometrial ablation: Status: Acute Category: Surgical Code(s): Z98.890 - Other specified postprocedural states (5) History of tubal ligation: Status: Acute Category: Surgical Code(s): Z98.51 - Tubal ligation status (6) Abnormal uterine bleeding (AUB): Status: Acute Category: Medical Code(s): N93.9 - Abnormal uterine and vaginal bleeding, unspecified Plan Scheduled for TVH, RSO, cystoscopy, possible YESENIA based on uterine fibroids location -Discussed ovarian preservation versus unilateral oophorectomy. Patient elects for unilateral oophorectomy secondary to debilitating right-sided ovarian pain -Discussed risk of injury to the surrounding structures to include but not limited to the ureters, bowel, bladder, and neurovascular bundles. Patient consented to blood transfusion if deemed medically necessary. Discussed risk of infection. Patient will have preoperative antibiotics to decrease this risk. No known drug allergies. -Discussed the risk of not being able to get the right ovary out vaginally. Patient reports that she wants his ovary out and monitor how we have to get it out. If necessary we will do a laparoscopic oophorectomy following hysterectomy -TVUS: Uterus: 9.3 x 4.5 x 5.2 cm. The endometrium measures 13.3 mm. Anteverted bulky uterus Ovaries: The right ovary measure 2.4 x 1.8 x 2.1 cm. There are multiple small right ovarian follicles, largest measuring 1.4 cm. The left ovary measure 2.8 x 1.6 x 1.5 cm. No evidence of adnexal mass or free fluid in the pelvic cavity. -CBC, test, type and screen ordered. -Infection prophylactic antibiotics ordered: Ancef 2g -Risks, benefits, and alternatives of hysterectomy reviewed with the pt. Risks including but not limited to bleeding, infection, and injury to the surrounding structures to include bowel, bladder, ureters, and neurovascular bundles were reviewed with the pt. Hemorrhage requiring life saving blood transfusion that carries a risk of viral infection was explained to the pt and she consented to transfusion if deemed medically necessary. -Reviewed with the pt the risk that hysterectomy would not alleviate her pelvic pain. Pt voiced understanding of the risks and consented to hysterectomy. -Postoperative course reviewed with the patient and explained that she should anticipate staying in the hospital 1-2 days until meeting all DC criteria, and pain is well controlled. Follow-up 2 and 6 weeks postop
--- NOTE | 2023-06-01 10:31 | SUR.PHASEI ---
1010- pt up to toilet to void. 1024- detailed report called to kemi cartwright in OB 1026- pt left in stable condition with kemi cartwright in ob. vss, DRESSINGS cdi
[2023-06-01] MEDS: KETOROLAC 30MG/ML VIAL 30 MG IV ×2 (10:46→16:33)
[2023-06-01] MEDS: ACETAMINOPHEN 500MG TAB 1000 MG PO (10:47)
[2023-06-01] MEDS: LACTATED RINGERS 1000ML 1,000 ML 125 ML IV ×2 (10:47→19:07)
--- NOTE | 2023-06-01 11:17 | HMH.PHAINT1 ---
Pharmacy Intervention Comments: Home meds verified with patient at bedside
--- NOTE | 2023-06-01 11:21 | HMH.PHAINT1 ---
Pharmacy Intervention Comments: Home meds verified with patient at bedside and external pharmacy list.
--- NOTE | 2023-06-01 13:20 | EXP.OP.NOTE ---
Date of procedure: 06/01/23 Pre-op Diagnosis:: 1. Abnormal uterine bleeding 2. Pelvic pain Post-op Diagnosis:: 1. Abnormal uterine bleeding 2. Pelvic pain Procedure performed:: 1. Total vaginal hysterectomy 2. Right salpingo-oophorectomy 3. Cystoscopy Surgeon:: Shahrzad Jones DO Solar Project Coordination Specialist(s):: Ashley Dean DO TANKAGE GRINDER OPERATOR:: Conrad Soto Anesthesia: GETA Estimated blood loss (mL): 200 Operative findings:: Uterine EUA was significant for 8wk size uterus with regular borders at the fundus. Grade 3 uterine descent was appreciated. No gross adnexal masses were appreciated. Operative note:: Pt was taken back to the OR where GETA was obtained without difficulty. SCDs were placed and found to be working. The patient was placed in dorsal lithotomy position using yellowfin stirrups. The vagina was prepped and draped in the normal sterile fashion. An in and out catheter was used to drain the bladder and 20 mL of methylene blue normal saline were inserted into the bladder. A weighted speculum and Shahida were used to visualize the cervix. Two Montelongo tenaculums were used to grasp the anterior and posterior ectocervix on the right and left. The scalpel was used to make a circumferential incision at the cervicovaginal junction. This was carried down with the Bovie. A raytec was used to bluntly dissect the paracervical fascia from the cervix off the vaginal mucosa. Metzenbaum scissors and pickups were used to enter the colpotomy posteriorly and a long weighted speculum was placed. Abdominal entry was confirmed by the presence of the ovary and omentum. The left uterosacral ligament was grasped with a david clamp, cut, and suture ligated with 0-Vicryl. This was tagged for later incorporation to the cuff. This process was repeated on the contralateral side. The anterior vaginal tissue was further dissected off the cervix. The Enseal was used to dissect the broad ligament down the lateral aspect of the uterine body on the left side. The cardinal ligaments and uterine vessels were identified bilaterally, grasped with the Enseal, coagulated and transected. This process was repeated on the right. At this time the anterior peritoneum was easily accessible and entered sharply with Metzenbaum scissors. A Shahida retractor was placed. Entry to the abdominal cavity was confirmed with the presence of omentum and the left ovary was visualized. The utero-ovarian ligament was clamped, coagulated and transected on the left. At this time there was only a very small amount of the broad ligament and the round ligament noted to be attached on the right. The Enseal was used to take this down. The uterus was free and removed from the vagina, passed off the operative field and sent to pathology for evaluation. The right ovary and fallopian tube were grasped with an Allis. A sponge stick was placed to create a safe distance from the bowel and the Enseal was used to transect the IP ligament. The right ovary and fallopian tube fragments were passed off the operative field to be sent to pathology for further evaluation. At this time there was a small amount of bleeding noted to be coming from anterior peritoneal edge. A [id number] stitch was placed tacking the anterior peritoneum to the vaginal cuff mucosa and hemostasis was noted. The left fallopian tube remnant was not easily or safely accessible and left in situ. The posterior peritoneum was fixed to the posterior vaginal cuff with a running locking stitch. The anterior peritoneum was grasped with an Araceli clamp and pursestringed closed. The vaginal cuff was then closed with 0 Vicryl figure of eights. Hemostasis was noted. Cystoscopy Cystoscopy was performed with a 70 degree cystoscope and distended with normal saline. Inspection of the bladder showed a normal-looking, blue dyed, smooth bladder mucosa with no evidence of injury, suture, puckering, or other abnormalities.? Both ureteral meatuses were visualized and were noted to be expelling urine in routine fashion.? Cystoscope was removed. Sponge, instrument and needle counts were correct x3, per nursing. The patient was awakened from general anesthesia and transferred to the PACU in stable condition. Condition: stable Disposition: floor Specimens:: Uterine body, cervix, right ovary and fallopian tube.? Complications:: None
[2023-06-01] MEDS: OXYCODONE 5MG IMMEDIATE RELEASE TABLET 5 MG PO (13:50)
--- NOTE | 2023-06-01 13:52 | EXP.ANES.II ---
[facility] Anesthesia Record Part II Anesthesia Record Part II Discharge Time: 10:25 Destination: Obstetric PACU nurse assessment reviewed?: Yes Patient Condition:: Good Anesthesia Complications:: None Swallowing reflex intact?: Yes Airway Patency: Patent Cyanosis?: No Blood Pressure: 131/69 SaO2: 98 Respiratory Rate: 18 Pulse Rate: 90 Temperature: 98.1 F Mental Status: Alert & Oriented Pain level:: 7 Nausea and/or vomitting:: None Intake, IV Amount: 0 Hydration: Adequate
--- NOTE | 2023-06-01 19:15 | PC.NURSE ---
SHIFT SUMMERY: PT HAS DONE WELL THIS SHIFT. PASSING FLATUS. AMBULATING INDEPENDENTLY IN ROOM. PAIN IS BEING WELL CONTROLLED WITH PRN NAD SCHEDULED PAIN MEDS.
--- NOTE | 2023-06-01 19:17 | PC.NURSE ---
SHIFT SUMMERY: PT HAS DONE WELL THIS SHIFT. PASSING FLATUS. AMBULATING INDEPENDENTLY IN ROOM. PAIN IS BEING WELL CONTROLLED WITH PRN AND SCHEDULED PAIN MEDS. BP IS STABLE. PT REPORTS LIGHT PINK SPOTTING WHEN SHE WIPES. NO CONCERNS VOICED.
--- NOTE | 2023-06-01 20:25 | PC.NURSE ---
Rounded on pt during this time, flushed iv and iv found to be not patent, Dr singletary called at this time as pt requests to not have a iv, Dr singletary okd for pt to have iv removed and okd to change iv torodol to motrin 800 q8 prn, verified and repeated new orders back, pt updated on poc
[2023-06-01] MEDS: PANTOPRAZOLE 40MG TABLET 40 MG PO (21:09)
[2023-06-01] MEDS: IBUPROFEN 400 MG TABLET 800 MG PO (21:09)
[2023-06-01] MEDS: ROPINIROLE 1MG TABLET 1 MG PO (21:09)
--- NOTE | 2023-06-02 04:38 | PC.NURSE ---
Reassessment done at this time, pt has slept the majority of the night without any trouble. Denies any pain and reports that she has had very little if any pain at all. lungs clear throughout and bowels active in all quads, Vitals have been stable throughout shift. Iv was d/c earlier in shift. pt input remains adequate. Pt has requested to not wear scuds while sleeping, and is walking to the bathroom w/o difficulty independently. no needs at this time and cb remains in reach
[2023-06-02 06:50] LABS: Basophils % 0.2 % (0.1-2.0); Eosinophils % 0.3 % (0.1-12.0); Hematocrit 34.7 % (37.0-47.0); Lymphocytes # 1.9 K/mm3 (0.7-4.5); Lymphocytes % 23.4 % (10-50); Mean Corpuscular HGB Conc 33.8 g/dL (31.8-35.4); Mean Corpuscular Hemoglobin 29.6 pg (27.0-31.2); Mean Corpuscular Volume 87.6 fl (81-99); Mean Platelet Volume 7.9 fl (7.4-10.4); Monocytes # 0.4 K/mm3 (0.1-1.0); Monocytes % 4.8 % (1.7-9.3); Neutrophils # 5.9 K/mm3 (1.8-7.8); Neutrophils % 71.3 % (37.0-80.0); Platelet Count 241 K/mm3 (142-424); Red Blood Count 3.97 M/mm3 (4.20-5.40); Red Cell Distribution Width 13.6 % (11.5-17.5); White Blood Count 8.3 K/mm3 (4.8-10.8)
[2023-06-02 08:30] VITALS: BP 109/55; PULSE 87; RESP 18; TEMP 36.6; O2SAT 99
--- NOTE | 2023-06-02 08:57 | EXP.DC.SUM ---
General Admission date:: 06/01/23 Discharge date: 06/02/23 HPI HPI HPI: POD # 1 s/p TVH, RSO, cystoscopy Resting comfortably in bed. Pain controlled. No vaginal bleeding. Voiding without difficulty. Passing flatus. Tolerating regular diet. Denies fever/chills, chest pain and shortness of breath. Ambulating well ad humaira. Hospital Course Hospital Course Hospital Course: Lucina Pastor is a 48-year-old -0-1-7 who presented to [facility] for a total vaginal hysterectomy with right salpingo-oophorectomy and cystoscopy. Possible total abdominal hysterectomy. Hysterectomy indicated for pelvic pain is been ongoing for 2 years. She had an ablation in 2020 with benign pathology. Reports that her bleeding stopped for about 2-3 months and then she started having heavy menses again. The pelvic pain is significantly worse on the right. She is currently taking 800 mg of ibuprofen every 8 hours and still having significant debilitating pain that prevents her from doing her daily activities of living. The pain disturbs her lifestyle. She is been evaluated in the ED several times for this pain. Patient has a history of a cryo or LEEP she does not remember which. Most recently her Pap smears have been normal. She denies any postcoital bleeding. She had a total vaginal hysterectomy, right salpingo-oophorectomy and cystoscopy on 06/01/23. She is doing well postoperatively. Pain controlled. No vaginal bleeding. Voiding without difficulty. Passing flatus. Tolerating regular diet. Denies fever/chills, chest pain and shortness of breath. Vital signs stable, afebrile. Heart regular rate and rhythm. Lungs clear to auscultation. Abdomen soft, nontender, + BS in all 4 quadrants. Ambulating well ad humaira. She was discharged home on POD # 1 with instructions to follow-up in the office in 2 weeks or sooner if needed. Exam Data for Last 24 hours Vital signs and Labs for Last 24 Hours: Temp Pulse Resp BP Pulse Ox O2 Del Method 98 F 80 15 139/67 98 Room Air 06/01/23 20:00 06/01/23 20:00 06/01/23 20:00 06/01/23 20:00 06/01/23 21:15 06/02/23 06:00 Laboratory Results - last 24 hr 06/01/23 06:25: Blood Type A Negative, Antibody Screen Negative 06/02/23 06:23: WBC 8.3 D, RBC 3.97 L, Hct 34.7 L, MCV 87.6, MCH 29.6, MCHC 33.8, RDW 13.6, Plt Count 241, MPV 7.9, Neut % (Auto) 71.3, Lymph % (Auto) 23.4, [place] % (Auto) 4.8, Eos % (Auto) 0.3, Baso % (Auto) 0.2, Neut # (Auto) 5.9, Lymph # (Auto) 1.9, [place] # (Auto) 0.4, Eos # (Auto) 0.0, Baso # (Auto) 0.0 I & O for Last 24 hours: Intake & Output 05/30/23 05/31/23 06/01/23 06/02/23 23:59 23:59 23:59 23:59 Intake Total 680 / 680 Output Total 450 / 450 Balance 230 / 230 Constitutional Constitutional: no acute distress and cooperative *Routine HEENT Exam Head: Present normocephalic and atraumatic Eye: Absent conjunctivae pink ENT: Present mucous membranes moist *Routine Neck Exam Neck: Present full ROM *Routine Respiratory Exam Respiratory: Present CTA bilaterally and normal respiratory effort *Routine Cardiovascular Exam Cardiovascular: Present RRR *Routine Abdominal Exam Abdominal: Present soft and normoactive bowel sounds; Absent tenderness or distended *Routine Rectal Exam Patient deferred: visual exam *Routine Exam Patient deferred: external exam *Routine Extremities Exam Extremities: Present full ROM; Absent edema or calf tenderness *Routine Neurological Exam Neurological: Present alert, oriented X3 and moving all extremities Routine Psychiatric Exam Psychiatric: Present normal affect and cooperative Results Data Completed and Pending Labs on day of discharge: Labs from last 24 hours 06/02/23 06/01/23 06:23 06:25 WBC 8.3 D RBC 3.97 L Hct 34.7 L MCV 87.6 MCH 29.6 MCHC 33.8 RDW 13.6 Plt Count 241 MPV 7.9 Neut % (Auto) 71.3 Lymph % (Auto) 23.4 [place] % (Auto) 4.8 Eos % (Auto) 0.3 Baso % (Auto) 0.2 Neut # (Auto) 5.9 Lymph # (Auto) 1.9 [place] # (Auto) 0.4 Eos # (Auto) 0.0 Baso # (Auto) 0.0 Blood Type A Negative Antibody Screen Negative DS: Diagnosis Discharge Diagnosis (1) Status post vaginal hysterectomy: Status: Acute Code(s): Z90.710 - Acquired absence of both cervix and uterus Problem details: with right salpingo-oophorectomy 06/01/23 (2) Abnormal uterine bleeding (AUB): Status: Acute Code(s): N93.9 - Abnormal uterine and vaginal bleeding, unspecified (3) Polyp of corpus uteri: Status: Acute Code(s): N84.0 - Polyp of corpus uteri (4) Pelvic pain in female: Status: Acute Code(s): R10.2 - Pelvic and perineal pain (5) Dyspareunia: Status: Acute (6) S/P endometrial ablation: Status: Acute Code(s): Z98.890 - Other specified postprocedural states (7) History of tubal ligation: Status: Acute Code(s): Z98.51 - Tubal ligation status Meds Home Medications and Allergies Home Medications Medication Instructions Recorded Confirmed Type omeprazole 20 mg capsule,delayed 20 mg PO DAILY 04/22/23 06/01/23 History release ropinirole 1 mg tablet 1 mg PO HS #30 tabs 05/24/23 06/01/23 Rx azelastine 137 mcg (0.1 %) nasal 1 spray intranasal DAILYP PRN 05/25/23 06/01/23 History spray aerosol allergies dextroamphetamine-amphetamine ER 25 mg PO DAILY 05/29/23 05/29/23 History 25 mg capsule,3 bead,ext release 24hr (Mydayis) valacyclovir 500 mg tablet 500 mg PO NEEDED PRN Outbreak 06/01/23 06/01/23 History ibuprofen 400 mg tablet 800 mg PO Q8H #40 tabs 06/02/23 Rx oxycodone 5 mg tablet 5 mg PO Q4HP PRN Moderate Pain 06/02/23 Rx (4-6) #15 tabs New Prescriptions to Start Prescriptions: ibuprofen Canan,Ashley oxycodone Canan,Ashley Allergies Allergy/AdvReac Type Severity Reaction Status Date / Time No Known Allergies Allergy Verified 06/01/23 06:20 Discharge Plan Disposition Patient Disposition: Home, Self-Care Condition: Good Follow up Plan Follow up with: Shahrzad Jones DO [Staff Physician] - 06/15/23 2:00 pm Prescriptions/Medication Reconciliation: New ibuprofen 400 mg Tablet 800 mg PO Q8H Qty: 40 0RF oxycodone 5 mg Tablet 5 mg PO Q4HP PRN (Reason: Moderate Pain (4-6)) Qty: 15 0RF Continued azelastine 137 mcg (0.1 %) aerosol,spray 1 spray intranasal DAILYP PRN (Reason: allergies) Rx Instructions: 1 spray each nostril as needed ropinirole 1 mg tablet 1 mg PO HS Qty: 30 2RF omeprazole 20 mg capsule,delayed release(DR/EC) 20 mg PO DAILY Patient Comments: TAKE 2 CAPSULES BY MOUTH ONCE DAILY dextroamphetamine-amphetamine [Mydayis] 25 mg capsule, ER multiphase 24 hr 25 mg PO DAILY Patient Comments: TAKE 1 BY MOUTH ONCE DAILY valacyclovir 500 mg Tablet 500 mg PO NEEDED PRN (Reason: Outbreak) Rx Instructions: Only takes when experiences flare up per patient Problem Reconciliation Problems Reviewed?: Yes Patient Discharge Instructions ACTIVITY: Limited activity DIET: continue same diet and regular diet Additional Instructions: You had a total vaginal hysterectomy and right salpingo-oophorectomy. This means that your uterus, cervix, and right ovary and fallopian tube were removed. The top of your vagina is closed with dissolvable sutures. Removing your fallopian tubes decreases your lifetime risk of ovarian cancer. You will follow-up in office for a postop visit at 1 weeks and at 6 weeks. At your 6-week postop appointment you will have a pelvic exam to ensure your cuff is healing well. Activity: - No lifting more than 10 lbs for 6 weeks. - No driving while you are taking narcotic pain medication. Medications: - Ibuprofen (a nonsteroidal anti-inflammatory) for pain. Please take the ibuprofen scheduled for the first 2-3 days as this will help control your pain - Oxycodone (a narcotic pain medication) use the narcotic pain medication for breakthrough or severe pain. You will want to stop the narcotic pain medication first. Narcotic pain medication can be habit forming so please only use this medication if you need it. - Senna (a stool softener) use this medication for constipation as needed. Narcotics can increase your risk for constipation - Simethicone: a gas medication for bloating and gas pain you may experience in the next 1-2 weeks. Please call the office or return to the ER if you have any of the followin. bleeding more than 1 pad an hour for 2 hours 2. pain that does not respond to your narcotic pain medication 3. dizziness or lightheadedness such that you lose consciousness Questions or concerns: It is my privilege to be your doctor. Please let me know if you have other questions or concerns. Shahrzad Jones DO [facility] [place], [place] [address] Patient Instructions: DI for Vaginal Hysterectomy Providers Primary Care Provider: Cammie Stack Admit Provider: Shahrzad Jones Attending Provider: Shahrzad Jones
[2023-06-02] MEDS: IBUPROFEN 400 MG TABLET 800 MG PO (11:10)
[2023-06-02] MEDS: OXYCODONE 5MG IMMEDIATE RELEASE TABLET 5 MG PO (11:11)
[2023-06-02 13:14] LABS: Hemoglobin 11.8 g/dL (12.2-16.2)
== END 2023-06-02 12:40 | disposition home or self-care (01) ==
LOC: OB 06:13
PROVIDERS: Admitting Provider Obstetrics & Gynecology; PCP Physician Assistant; Visit Provider Obstetrics & Gynecology
PROC: (CPT 58262; principal; 2023-06-01 07:30)
DX: N84.0 Polyp of corpus uteri (principal); R10.2 Pelvic and perineal pain; Z98.51 Tubal ligation status; G47.00 Insomnia, unspecified
CPT/HCPCS: 58262; 36415; 85025; 86850; 96374; G0378; J2405

== ENCOUNTER 2023-10-13 18:40 | Emergency (ER) | payer BC, MEDICAID, SELFPAY ==
[2023-10-13 18:41] VITALS: BP 116/64; PULSE 77; RESP 18; TEMP 37; O2SAT 99; BMI 36.0
--- NOTE | 2023-10-13 18:52 | PC.NURSE ---
DR VELASQUEZ AT BEDSIDE
--- NOTE | 2023-10-13 19:03 | XR_ITS ---
PROCEDURE INFORMATION: Exam: XR Chest Exam date and time: 10/13/2023 7:11 PM Age: 48 years old Clinical indication: Other: Bl le edema TECHNIQUE: Imaging protocol: Radiologic exam of the chest. Views: 1 view. COMPARISON: CT ABDOMEN PELVIS W CON 05/19/2021 1:23 PM FINDINGS: Lungs: Normal. Pleural spaces: Normal. No pleural effusion. No pneumothorax. Heart/Mediastinum: Normal. No cardiomegaly. Bones/joints: Unremarkable. IMPRESSION: No acute findings.
--- NOTE | 2023-10-13 19:11 | HMH.EDGENADL ---
Discharge Plan Disposition Patient Disposition: Home, Self-Care Chief Complaint: Recheck/Abnormal Lab/Rx Prescriptions Prescriptions: No Action Wegovy 0.25 mg/0.5 mL pen injector 0.25 mg SQ WEEKLY Qty: 2 0RF Rx Instructions: administer weeks 1 through 4 of therapy Linzess 145 mcg capsule 145 mcg PO DAILY Qty: 30 4RF levocetirizine 5 mg tablet 5 mg PO DAILY Qty: 90 0RF methylprednisolone [Medrol (Porter)] 4 mg tablets,dose pack See Rx Instructions .Route .COMPLEX 6 Days Qty: 21 0RF Rx Instructions: taper pack; amoxicillin-pot clavulanate 875-125 mg tablet 1 tab PO Q12H 10 Days Qty: 20 0RF azelastine 137 mcg (0.1 %) aerosol,spray 1 spray intranasal BID Qty: 30 3RF Rx Instructions: 1 spray each nostril fluticasone propionate [Flonase Allergy Relief] 50 mcg/actuation spray,suspension 1 spray intranasal QHS Qty: 10 3RF Rx Instructions: administer into each nostril ropinirole 1 mg tablet 1 mg PO HS Qty: 30 2RF valacyclovir 500 mg Tablet 500 mg PO NEEDED PRN (Reason: Outbreak) Rx Instructions: Only takes when experiences flare up per patient Referrals Follow up/Referrals: Cammie Stack PA [Primary Care Provider] - See instructions Activity Restrictions/Add. Instructions Additional Instructions/Restrictions: Call your family doctor to establish care for this visit to the emergency department and schedule follow-up within 48 hours to ensure improvement. You can purchase compression stockings to go either below or above your knee depending on your preference. Put these on at the beginning of every day as it will be harder to put on in the afternoon at the end of the day when your legs are starting to swell. Clinical Impressions Clinical Impression: Dependent edema Discharge ED Provider: Satish Garza General Adult HPI General Chief complaint: Recheck/Abnormal Lab/Rx Stated complaint: bilateral leg/ankle swelling, no accident Time Seen by Provider: 10/13/23 18:41 Mode of Arrival: Ambulatory Source of Information: Patient Limitations: No Limitations Description of Symptoms (Recalled from ER Triage Doc. by RN): PT REPORTS BILATERAL EDEMA OF LEGS X 1 MONTH. INCREASED THIS WEEK AFTER BEING AT [facility] FOR 6 DAYS. DOES IMPROVE WITH ELEVATION BUT RETURNS. DENIES SHORTNESS OF BREATH OR CHEST PAIN History of Present Illness HPI narrative: Please note that above description of symptoms, in this electronic medical record under categorization of recalled from ER triage doctor by RN are reflective of an initial nursing assessment, however, is not reflective of my full history and physical exam that was personally taken and clarified. Consequentially, this preceding description of symptoms, which may include the patient's categorized chief complaint in the EMR, do not reflect my personal clinical impression, and the ultimate description of history of present illness and patient stated complaints should be deferred to this section of the note. Unless stated otherwise or congruent with this section of the note, additional signs, symptoms, or incongruence should be interpreted as inaccurate with my clinical impression. Related Data Home Medications Medication Instructions Recorded Confirmed valacyclovir 500 mg tablet 500 mg PO NEEDED PRN Outbreak 06/01/23 08/30/23 Previous Rx's Medication Instructions Recorded linaclotide 145 mcg capsule 145 mcg PO DAILY #30 caps 06/15/23 (Linzess) semaglutide (weight loss) 0.25 0.25 mg (0.5 mL) SQ WEEKLY #2 mL 08/07/23 mg/0.5 mL subcutaneous pen injector (Wegovy) ropinirole 1 mg tablet 1 mg PO HS #30 tabs 08/25/23 amoxicillin 875 mg-potassium 1 tab PO Q12H 10 days #20 tabs 08/30/23 clavulanate 125 mg tablet azelastine 137 mcg (0.1 %) nasal 1 spray intranasal BID allergies 08/30/23 spray aerosol #30 mL fluticasone propionate 50 1 spray intranasal QHS #10 mL 08/30/23 mcg/actuation nasal spray,suspension (Flonase Allergy Relief) levocetirizine 5 mg tablet 5 mg PO DAILY #90 tabs 08/30/23 methylprednisolone 4 mg tablets in See Rx Instructions .Route 08/30/23 a dose pack (Medrol (Porter)) .COMPLEX 6 days #21 tabs Allergies Allergy/AdvReac Type Severity Reaction Status Date / Time No Known Allergies Allergy Verified 08/30/23 09:17 [facility] Disclaimer: The information contained in this section may have been updated after the patient was seen, as this information can be updated by other users. Medical History (Updated 10/13/23 @ 20:04 by Satish Garza MD) BMI 34.0-34.9,adult Chronic eustachian tube dysfunction Hoarseness Otitis media Urinary tract infection Kidney stone History of COVID-19 History of gastroesophageal reflux (GERD) History of anemia Fibrocystic breast Constipation Insomnia Surgical History Status post vaginal hysterectomy History of cholecystectomy S/P endometrial ablation History of tubal ligation Family History Other Family history of cancer Family history of diabetes mellitus type II Family history of hypertension Social History Smoking Status: Never smoker alcohol intake: current alcohol intake frequency: holidays/special occasions only substance use type: denies use current occupational status: employed Travel in the last 8 weeks: None household members: spouse housing: house current occupation: [employer] current occupational exposures/hazards: Yes caffeine: Yes ROS Obtained: Yes All systems reviewed & no additional complaints except as documented Physical Exam General General appearance: alert and in no apparent distress Head Head exam: atraumatic and normocephalic Eye Eye exam: Present normal appearance, PERRL and EOMI ENT ENT exam: Present mucous membranes moist Neck Neck exam: Present normal inspection, full ROM and trachea midline Respiratory Respiratory exam: Absent respiratory distress, wheezes, stridor, accessory muscle use or prolonged expiratory phase Cardiovascular Cardiovascular exam: Present normal rhythm Abdominal Exam Abdominal exam: Present soft; Absent distention, tenderness, guarding, rebound or rigidity Extremities Exam Extremities exam: Absent edema (Minimal, if any, nonpitting lower extremity edema bilaterally. Subjectively swollen to patient) Neurological Exam Neurological exam: Present alert, oriented X3, CN II-XII intact and normal gait; Absent motor sensory deficit Skin Skin exam: Present warm and dry; Absent diaphoresis or erythema Medical Decision Making Medical Records Medical records reviewed: Yes I reviewed the patient's medical records. Aron Inquiry Pt receiving controlled substance: No Aron was queried for this patient: No Vital Signs: 10/13/23 18:41 Temperature 98.6 F Temperature Source Oral Pulse Rate [Radial] 77 Respiratory Rate 18 Blood Pressure [Right Arm] 116/64 Blood Pressure Mean [Right Arm] 81 Blood Pressure Source [Right Arm] Automatic Cuff Blood Pressure Position [Right Arm] Sitting 02 Sat by Pulse Oximetry 99 Oxygen Delivery Method Room Air Lab Data Lab Results 10/13/23 19:16: WBC 5.3, RBC 4.15 L, Hgb 12.1 L, Hct 36.9 L, MCV 88.8, MCH 29.1, MCHC 32.8, RDW 14.0, Plt Count 245, MPV 7.2 L, Neut % (Auto) 54.2, Lymph % (Auto) 37.2, [place] % (Auto) 5.2, Eos % (Auto) 2.6, Baso % (Auto) 0.8, Neut # (Auto) 2.9, Lymph # (Auto) 2.0, [place] # (Auto) 0.3, Eos # (Auto) 0.1, Baso # (Auto) 0.0, Sodium 137, Potassium 4.0, Chloride 107, Carbon Dioxide 26, Anion Gap 8.0, BUN 20 H, Creatinine 0.90, Estimated Creat Clear 114, Estimated GFR 67, Est GFR ( Amer) 81, Glucose 114 H, Calcium 9.4, Total Bilirubin 0.3, AST 30, ALT 19, Alkaline Phosphatase 67, NT-Pro-B Natriuret Pep 35.8, Total Protein 6.5, Albumin 3.8, Globulin 2.7, Albumin/Globulin Ratio 1.4 10/13/23 19:16 10/13/23 19:16 Orders (Tests/Meds): ORDERS Category Date Time Status CXR --portable [XR chest portable] Stat Exams 10/13/23 19:03 Completed CBC w/Auto Diff [Complete Blood Count Auto Diff] Stat Lab 10/13/23 19:16 Completed CMP [Comprehensive Metabolic Panel] Stat Lab 10/13/23 19:16 Completed NT Pro Brain Natriuretic Pep. Stat Lab 10/13/23 19:16 Completed Medical Decision Narrative: 48-year-old female no relevant medical history presenting with lower extremity edema. Patient states that the lower extremity edema has been getting worse over the past 4 to 6 weeks. 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 She states it gets worse at the end of the day, better in the morning after she wakes up. Does not wear compression stockings. Has not had problems with this in the past prior to this. No pain, unilateral swelling, history of DVT or PE, recent surgery or trauma, cardiac disease, or any other concerns. She has not seen her family doctor for any of this. History was obtained via conversation with patient. On arrival, patient hemodynamically stable, alert, oriented x4, appropriate, GCS 15, moving all extremities spontaneously, pupils equal and reactive to light. Full physical exam performed and significant for well-appearing female in no acute distress. Minimal lower extremity edema bilaterally, this is mostly subjective. Pulses are equal and symmetric, patient ambulatory, no evidence of pain. Differential includes dependent edema, CHF, among others. Independent interpretation of workup demonstrates nonactionable CBC, chemistry, BNP. Chest x-ray independently interpreted and significant for no acute cardiopulmonary space disease, no evidence of edema or cephalization. given patient presentation, workup, history, this most likely represents dependent edema. Because patient at baseline without signs or symptoms of clinical decompensation, deemed appropriate for discharge. Results were relayed to patient who voiced understanding and were agreeable to outpatient management and follow up. I discussed my clinical impression with patient and answered all questions. At this time, the evidence for any other entities in the differential is insufficient to warrant any further testing or ED observation. This was explained as well. Advisory was given that persistent or worsening symptoms require further evaluation. I confirmed the understanding of this discussion. Critical Care Critical Care Time Critical Care Time: No
[2023-10-13 19:31] LABS: Basophils % 0.8 % (0.1-2.0); Eosinophils # 0.1 K/mm3 (0.0-0.4); Eosinophils % 2.6 % (0.1-12.0); Hematocrit 36.9 % (37.0-47.0); Hemoglobin 12.1 g/dL (12.2-16.2); Lymphocytes % 37.2 % (10-50); Mean Corpuscular HGB Conc 32.8 g/dL (31.8-35.4); Mean Corpuscular Hemoglobin 29.1 pg (27.0-31.2); Mean Corpuscular Volume 88.8 fl (81-99); Mean Platelet Volume 7.2 fl (7.4-10.4); Monocytes # 0.3 K/mm3 (0.1-1.0); Monocytes % 5.2 % (1.7-9.3); Neutrophils # 2.9 K/mm3 (1.8-7.8); Neutrophils % 54.2 % (37.0-80.0); Platelet Count 245 K/mm3 (142-424); Red Blood Count 4.15 M/mm3 (4.20-5.40); White Blood Count 5.3 K/mm3 (4.8-10.8)
[2023-10-13 19:40] LABS: Chloride 107 mmol/L (98-107)
[2023-10-13 19:41] LABS: Sodium 137 mmol/L (136-145)
[2023-10-13 19:43] LABS: Alanine Aminotransferase 19 U/L (12-78); Alkaline Phosphatase 67 U/L (38-126); Aspartate Amino Transferase 30 U/L (14-36); Bilirubin,Total 0.3 mg/dl (0.2-1.3); Blood Urea Nitrogen 20 mg/dl (7-17); Creatinine Clearance Estimated 114 mL/min (50-200); Estimated Glomerular Filt Rate 67 ml/min (>60); GFR (African American) 81 ML/MIN (>60)
[2023-10-13 19:44] LABS: Albumin Level 3.8 g/dl (3.5-5.0); Albumin/Globulin Ratio 1.4 (1.1-1.8); Calcium 9.4 mg/dl (8.4-10.2); Carbon Dioxide 26 mmol/L (22.0-30.0); Globulin 2.7 g/dL (1.3-3.2); Glucose 114 mg/dl (74-100); Total Protein,Serum 6.5 g/dl (6.3-8.2)
[2023-10-13 19:53] LABS: NT Pro Brain Natriuretic Pep. 35.8 pg/mL (0-125)
[2023-10-13 20:29] VITALS: BP 116/68; PULSE 74; RESP 16; TEMP 36.8; O2SAT 99
[2023-10-13 20:31] VITALS: BP 116/68; PULSE 74; RESP 16; TEMP 36.8; O2SAT 99
== END 2023-10-13 20:20 | disposition home or self-care (01) ==
PROVIDERS: Emergency Provider Emergency Medicine; PCP Physician Assistant
DX: R60.0 Localized edema (principal)
CPT/HCPCS: 71045; 80053; 83880; 85025; 99283

== ENCOUNTER 2023-12-07 19:21 | Outpatient (CLI) | payer BC, MEDICAID, SELFPAY ==
[2023-12-07 20:10] LABS: Basophils % 0.3 % (0.1-2.0); Eosinophils # 0.1 K/mm3 (0.0-0.4); Eosinophils % 1.9 % (0.1-12.0); Hemoglobin 13.9 g/dL (12.2-16.2); Lymphocytes # 1.7 K/mm3 (0.7-4.5); Lymphocytes % 34.3 % (10-50); Mean Corpuscular HGB Conc 33.2 g/dL (31.8-35.4); Mean Corpuscular Hemoglobin 29.8 pg (27.0-31.2); Mean Corpuscular Volume 89.8 fl (81-99); Mean Platelet Volume 8.2 fl (7.4-10.4); Monocytes # 0.3 K/mm3 (0.1-1.0); Monocytes % 5.2 % (1.7-9.3); Neutrophils # 2.8 K/mm3 (1.8-7.8); Neutrophils % 58.3 % (37.0-80.0); Platelet Count 297 K/mm3 (142-424); Red Blood Count 4.67 M/mm3 (4.20-5.40); Red Cell Distribution Width 13.4 % (11.5-17.5); White Blood Count 4.8 K/mm3 (4.8-10.8)
[2023-12-07 20:45] LABS: Alanine Aminotransferase 13 U/L (12-78); Albumin Level 4.3 g/dl (3.5-5.0); Albumin/Globulin Ratio 1.5 (1.1-1.8); Alkaline Phosphatase 70 U/L (38-126); Anion Gap 12.4 mEq/L (5-15); Aspartate Amino Transferase 25 U/L (14-36); Bilirubin,Total 0.7 mg/dl (0.2-1.3); Blood Urea Nitrogen 17 mg/dl (7-17); Calcium 9.8 mg/dl (8.4-10.2); Carbon Dioxide 26 mmol/L (22.0-30.0); Chloride 105 mmol/L (98-107); Cholesterol 170 mg/dl (140-200); Estimated Glomerular Filt Rate 59 ml/min (>60); GFR (African American) 71 ML/MIN (>60); Globulin 2.9 g/dL (1.3-3.2); Glucose 75 mg/dl (74-100); HDL Cholesterol 42 mg/dl (40-60); Potassium 4.4 mmoL/L (3.5-5.1); Sodium 139 mmol/L (136-145); Total Protein,Serum 7.2 g/dl (6.3-8.2); Triglycerides 78 mg/dl (30-150); VLDL Cholesterol 16 mg/dL (0-40)
[2023-12-07 20:57] LABS: Direct LDL Cholesterol 96.49 mg/dL (100-129)
[2023-12-07 21:08] LABS: 25-OH Vitamin D, Total 42.2 ng/mL (30-100)
[2023-12-07 21:16] LABS: Thyroid Stimulating Hormone 1.15 uIU/mL (0.465-4.68)
[2023-12-07 21:29] LABS: Hemoglobin A1C 4.9 % (4.0-6.0)
[2023-12-07 21:38] LABS: Iron 81 ug/dL (37-170)
[2023-12-07 21:52] LABS: Vitamin B12 488 pg/mL (239-931)
[2023-12-07 22:33] LABS: Ferritin 47.4 ng/ml (6.24-137); Total Iron Binding Capacity 231 ug/dL (265-497)
[2023-12-08 14:02] LABS: HIV (1&2) Antibody Rapid NEGATIVE
[2023-12-09 14:39] LABS: HCV Ab Non Reactive (Non Reactive)
== END 2023-12-07 23:59 | disposition home or self-care (01) ==
LOC: LAB.DROPOF 19:22
PROVIDERS: PCP Student in an Organized Health Care Education/Training Program; Visit Provider Student in an Organized Health Care Education/Training Program
DX: Z13.1 Encounter for screening for diabetes mellitus (principal); Z11.4 Encounter for screening for human immunodeficiency virus [HIV]; Z13.29 Encounter for screening for other suspected endocrine disorder; Z11.59 Encounter for screening for other viral diseases; G25.81 Restless legs syndrome; E55.9 Vitamin D deficiency, unspecified; D64.9 Anemia, unspecified; E66.9 Obesity, unspecified; Z68.33 Body mass index [BMI] 33.0-33.9, adult
CPT/HCPCS: 80050; 80053; 80061; 82306; 82607; 82728; 82746; 83036; 83540; 83550; 84443; 85025

== ENCOUNTER 2024-08-07 21:57 | Emergency (ER) | payer BC, SELFPAY ==
[2024-08-07 22:08] VITALS: BP 124/81; PULSE 74; RESP 20; TEMP 36.5; O2SAT 99; BMI 33.1
[2024-08-07 22:18] VITALS: PULSE 72; O2SAT 98
[2024-08-07 22:30] VITALS: BP 134/78; PULSE 69; O2SAT 97
--- NOTE | 2024-08-07 22:30 | XR_ITS ---
PROCEDURE INFORMATION: Exam: XR Right Knee Exam date and time: 08/07/2024 10:41 PM Age: 49 years old Clinical indication: Pain; Knee; Right; Additional info: Knee pain atraumatic TECHNIQUE: Imaging protocol: Radiologic exam of the right knee. Views: 3 views. COMPARISON: No relevant prior studies available. FINDINGS: Bones/joints: Joint space narrowing and marginal osteophytosis, most pronounced in the patellofemoral compartment. No acute fracture. No dislocation. Soft tissues: Normal. IMPRESSION: Osteoarthritis of the knee, most pronounced in the patellofemoral compartment.
--- NOTE | 2024-08-07 22:32 | HMH.EDGENADL ---
Discharge Plan Disposition Patient Disposition: Home, Self-Care Prescriptions Prescriptions: New indomethacin 25 mg capsule 25 mg PO TID PRN (Reason: arthritis pain) 7 Days Qty: 21 0RF Rx Instructions: administer with food or milk No Action valacyclovir 500 mg tablet 500 mg PO DAILY Patient Comments: TAKE 1 TABLET BY MOUTH ONCE DAILY ropinirole 1 mg tablet 1 mg PO HS Qty: 30 2RF dextroamphetamine-amphetamine [Mydayis] 25 mg capsule, ER triphasic 24 hr 25 mg PO DAILY Qty: 30 0RF Referrals Follow up/Referrals: Tj Gutierrez DO [Staff Physician] - See instructions Provider,Referral, [Primary Care Provider] - See instructions Activity Restrictions/Add. Instructions Additional Instructions/Restrictions: At this time it was felt you are safe to be discharged home. If new or worsening symptoms please do not hesitate to return the emergency department. Please take your medication as prescribed and call and schedule appoint with Dr. Gutierrez as soon as you are able. Clinical Impressions Clinical Impression: Knee pain, right Print Language Print Language: Persian Discharge ED Provider: Lyle Schrader General Adult HPI General Chief complaint: PAIN Stated complaint: RT knee pain Time Seen by Provider: 08/07/24 22:08 Mode of Arrival: Ambulatory Source of Information: Patient Limitations: No Limitations Description of Symptoms (Recalled from ER Triage Doc. by RN): right knee pain for past week History of Present Illness HPI narrative: Patient is a 49-year-old female with no pertinent past medical history presents emergency department for evaluation of right knee pain. History is obtained by patient at bedside. She had repetitive strenuous activity over the last week which has resulted in increasing pain over her right lateral knee. She is able to bear weight with difficulty however it does cause significant pain. She has never had pain like this before. No discrete trauma. No other acute complaints at this time. Related Data Home Medications ?Medication ?Instructions ?Recorded ?Confirmed valacyclovir 500 mg tablet 500 mg PO DAILY 02/20/24 08/07/24 Previous Rx's ?Medication ?Instructions ?Recorded ropinirole 1 mg tablet 1 mg PO HS #30 tabs 05/20/24 dextroamphetamine-amphetamine ER 25 mg PO DAILY #30 ea 07/23/24 25 mg capsule,3 bead,ext release 24hr (Mydayis) indomethacin 25 mg capsule 25 mg PO TID PRN arthritis pain 7 08/07/24 days #21 caps Allergies Allergy/AdvReac Type Severity Reaction Status Date / Time No Known Allergies Allergy Verified 05/28/24 08:27 [facility] Disclaimer: The information contained in this section may have been updated after the patient was seen, as this information can be updated by other users. Medical History Attention Deficit Hyperactivity Disorder (ADHD) Dyspareunia Vitamin D deficiency Restless legs syndrome Pressure and pain of right side of face Dependent edema BMI 34.0-34.9,adult Chronic eustachian tube dysfunction Hoarseness Otitis media Urinary tract infection Kidney stone History of COVID-19 History of gastroesophageal reflux (GERD) History of anemia Fibrocystic breast Constipation Insomnia Surgical History Status post vaginal hysterectomy with right salpingo-oophorectomy 06/01/23 History of cholecystectomy S/P endometrial ablation History of tubal ligation Family History Other Family history of cancer Family history of diabetes mellitus type II Family history of hypertension Social History Smoking Status: Never smoker alcohol intake: current alcohol intake frequency: holidays/special occasions only substance use type: denies use current occupational status: employed Travel in the last 8 weeks: None household members: spouse housing: house 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 [employer] current occupational exposures/hazards: Yes caffeine: Yes Have you lived/traveled outside [place] in past 30 days?: No Contact w/someone who lives/traveled outside US past 30 days?: No Exposure to someone with infectious disease in past 14 days?: No Do you have a fever (greater than 100.4 F or 38 C)?: No Have you tested positive for COVID-19: No Exposed to someone with COVID-19 in past 14 days?: No Do you have a sore throat?: No Do you have a cough?: No Do you have any weakness?: No Do you have any diarrhea?: No Are you experiencing any unusual bleeding?: No Do you have any muscle aches/pain?: No Do you have any abdominal pain?: No Are you experiencing loss of taste or smell?: No Other Medical History Have you received the Flu Vaccine for this season: No Have you received the Pneumonia Vaccine: No ROS Obtained: Yes Systems reviewed as appropriate & no additional complaints except as documented Physical Exam General General appearance: alert and in no apparent distress Head Head exam: atraumatic and normocephalic Eye Eye exam: Present PERRL ENT ENT exam: Present mucous membranes moist Neck Neck exam: Present normal inspection Chest Chest inspection: Present normal inspection and symmetric chest wall rise Respiratory Respiratory exam: Absent respiratory distress Cardiovascular Cardiovascular exam: Present regular rate Extremities Exam Extremities exam: Present normal inspection and other (Tenderness over the lateral joint line, no significant swelling or erythema or warmth. Extensor mechanism intact. Dorsal pedal pulse palpable distal right lower extremity.) Neurological Exam Neurological exam: Present alert Psychiatric Psychiatric exam: Present normal affect Skin Skin exam: Present warm and dry Medical Decision Making Medical Records Screening: Per USPSTF and CDC recommendations, given the prevalence of disease in our region, it is our hospital?s policy to screen for HIV and viral Hepatitis for all patients aged 18 and over and those with ongoing risk factors. Aron Inquiry Pt receiving controlled substance: No Vital Signs: 08/07/24 22:08 08/07/24 22:18 08/07/24 22:30 Temperature 97.7 F Temperature Source Oral Pulse Rate 72 69 Pulse Rate [Right Brachial] 74 Respiratory Rate 20 Blood Pressure 134/78 Blood Pressure [Right Arm] 124/81 Blood Pressure Mean [Right Arm] 95 Blood Pressure Source [Right Arm] Automatic Cuff Blood Pressure Position [Right Arm] Sitting 02 Sat by Pulse Oximetry 99 98 97 Oxygen Delivery Method Room Air Room Air Orders (Tests/Meds): ED MEDICATIONS Discontinued Medications Generic Name Dose Route Start Last Admin Trade Name Freq PRN Reason Stop Dose Admin Acetaminophen 1,000 mg 08/07/24 22:30 08/07/24 22:37 Acetaminophen 500mg Tab PO 08/07/24 22:31 1,000 mg ONCE ONE Administration Indomethacin 25 mg 08/07/24 22:30 08/07/24 22:37 Indomethacin 25 Mg Capsule PO 08/07/24 22:31 25 mg ONCE ONE Administration ORDERS Category Date Time Status Knee XR right 3 views [XR knee RT 3V] Stat Exams 08/07/24 22:30 Taken Medical Decision Narrative: In summary patient is a 49-year-old female past medical history described above who presents emergency department for evaluation of knee pain. Patient is hemodynamically stable nontoxic-appearing arrival, afebrile. Differential includes fracture, meniscal injury, among others. Based on history and physical exam no concern for septic arthritis or crystalline arthropathy. Initial inventions include indomethacin. Workup will be limited to plain film of the right knee. Plain film informally visualized by me, no acute displaced fracture or or dislocation. Given this patient was given crutches and will be weightbearing as tolerated will follow-up with Dr. Gutierrez on an outpatient basis. Critical Care Critical Care Time Critical Care Time: No
[2024-08-07] MEDS: ACETAMINOPHEN 500MG TAB 1000 MG PO (22:37)
[2024-08-07] MEDS: INDOMETHACIN 25 MG CAPSULE PO (22:37)
--- NOTE | 2024-08-07 22:42 | PC.NURSE ---
X-ray is in room at this time.
[2024-08-07 22:58] VITALS: BP 117/71; PULSE 62; RESP 18; TEMP 36.6; O2SAT 98
== END 2024-08-07 23:05 | disposition home or self-care (01) ==
PROVIDERS: Emergency Provider Emergency Medicine
DX: M25.561 Pain in right knee (principal)
CPT/HCPCS: 73562; 99283

== ENCOUNTER 2024-08-21 11:08 | Outpatient (CLI) | payer BC, SELFPAY ==
--- NOTE | 2024-08-21 11:11 | XR_ITS ---
FINAL REPORT CLINICAL HISTORY: renal stones, RUQ pain COMPARISON: None FINDINGS: SINGLE VIEW ABDOMEN A single view of the abdomen was obtained. There is a nonobstructive bowel gas pattern. A large amount of stool is present in the colon. There are no abnormally dilated loops of small bowel. No abnormal calcifications are identified. IMPRESSION: Nonobstructive bowel gas pattern with a large stool burden. Reviewed, Interpreted and Dictated by Alex Lester MD Transcribed by Belkis Ram Authenticated and [facility]
[2024-08-21 13:05] LABS: Microscopic, Urine URINE MICROSCOPIC (MICROSCOPIC)
[2024-08-21 13:17] LABS: Basophils % 0.3 % (0.1-2.0); Eosinophils # 0.1 K/mm3 (0.0-0.4); Eosinophils % 0.9 % (0.1-12.0); Hematocrit 42.4 % (37.0-47.0); Hemoglobin 13.6 g/dL (12.2-16.2); Lymphocytes % 25.8 % (10-50); Mean Corpuscular HGB Conc 32.1 g/dL (31.8-35.4); Mean Corpuscular Hemoglobin 28.2 pg (27.0-31.2); Mean Platelet Volume 9.6 fl (7.4-10.4); Monocytes # 0.5 K/mm3 (0.1-1.0); Monocytes % 6.3 % (1.7-9.3); Neutrophils # 5.1 K/mm3 (1.8-7.8); Neutrophils % 66.3 % (37.0-80.0); Platelet Count 306 K/mm3 (142-424); Red Blood Count 4.82 M/mm3 (4.20-5.40); Red Cell Distribution Width 13.2 % (11.5-17.5); White Blood Count 7.6 K/mm3 (4.8-10.8)
[2024-08-21 14:02] LABS: Creatinine,Urine Random 97 mg/dL (Not Estab.); Microalbumin < 6.000 mg/L (0-16.7)
[2024-08-21 14:08] LABS: Appearance,Urine Clear (Clear); Bilirubin,Urine Negative (Negative); Blood, Urine Negative (Negative); Color,Urine Yellow (Yellow); Glucose,Urine (UA) Negative (Negative); Ketones,Urine Negative (Negative); Leukocyte Esterase,Urine Negative (Negative); Nitrate,Urine Negative (Negative); Protein,Urine Negative (Negative); Specific Gravity, Urine 1.025 (1.005-1.030); Urobilinogen,Urine 0.2 EU/dl (0.2)
[2024-08-21 14:20] LABS: 25-OH Vitamin D, Total 25.7 ng/mL (30-100); Free T4 (Free Thyroxine) 1.14 ng/dl (0.78-2.19)
[2024-08-21 16:05] LABS: Alanine Aminotransferase 22 U/L (12-78); Albumin Level 5.2 g/dl (3.5-5.0); Albumin/Globulin Ratio 1.8 (1.1-1.8); Alkaline Phosphatase 80 U/L (38-126); Anion Gap 15.6 mEq/L (5-15); Aspartate Amino Transferase 30 U/L (14-36); Bilirubin,Total 0.5 mg/dl (0.2-1.3); Blood Urea Nitrogen 17 mg/dl (7-17); Calcium 9.9 mg/dl (8.4-10.2); Carbon Dioxide 24 mmol/L (22.0-30.0); Chloride 102 mmol/L (98-107); Chol/HDL Ratio 2.9 (1-3.5); Cholesterol 199 mg/dl (140-200); Estimated Glomerular Filt Rate 66 ml/min (>60); GFR (African American) 80 ML/MIN (>60); Globulin 2.9 g/dL (1.3-3.2); Glucose 80 mg/dl (74-100); HDL Cholesterol 68 mg/dl (40-60); Phosphorous 3.7 mg/dl (2.5-4.5); Potassium 4.6 mmoL/L (3.5-5.1); Sodium 137 mmol/L (136-145); Total Protein,Serum 8.1 g/dl (6.3-8.2); Triglycerides 76 mg/dl (30-150); VLDL Cholesterol 15 mg/dL (0-40)
[2024-08-21 16:15] LABS: Direct LDL Cholesterol 94.19 mg/dL (100-129)
[2024-08-21 17:04] LABS: Iron 87 ug/dL (37-170)
[2024-08-21 17:14] LABS: Total Iron Binding Capacity 305 ug/dL (265-497)
[2024-08-21 17:36] LABS: Thyroid Stimulating Hormone 2.03 uIU/mL (0.465-4.68)
[2024-08-21 17:40] LABS: Ferritin 47.6 ng/ml (6.24-137)
[2024-08-21 18:31] LABS: Vitamin B12 552 pg/mL (239-931)
== END 2024-08-21 23:59 | disposition home or self-care (01) ==
LOC: RAD 11:09
PROVIDERS: PCP Nurse Practitioner Family; Visit Provider Nurse Practitioner Family
DX: N20.0 Calculus of kidney (principal); R10.11 Right upper quadrant pain; R53.83 Other fatigue; E55.9 Vitamin D deficiency, unspecified; E53.8 Deficiency of other specified B group vitamins; G25.81 Restless legs syndrome; E66.9 Obesity, unspecified; Z68.34 Body mass index [BMI] 34.0-34.9, adult; Z13.220 Encounter for screening for lipoid disorders; Z13.1 Encounter for screening for diabetes mellitus
CPT/HCPCS: 74018; 80053; 80061; 81001; 82043; 82306; 82570; 82607; 82728; 83036; 83540; 83550; 83735; 84100; 84439; 84443; 85025; 87086

== ENCOUNTER 2024-08-28 09:45 | Outpatient (CLI) | payer BC, SELFPAY ==
[2024-08-28 15:37] LABS: Coronavirus 19, PCR Not Detected (NotDetected); Human Rhinovirus Not Detected (NotDetected); Influenza A, PCR Not Detected (NotDetected); Influenza B, PCR Not Detected (NotDetected); Respiratory Syncytial Virus Not Detected (NotDetected)
== END 2024-08-28 23:59 | disposition home or self-care (01) ==
LOC: LAB.DROPOF 08-29 10:58
PROVIDERS: PCP Nurse Practitioner; Visit Provider Nurse Practitioner
DX: J06.9 Acute upper respiratory infection, unspecified (principal)
CPT/HCPCS: 87631

== ENCOUNTER 2024-11-05 10:55 | Outpatient (CLI) | payer BC, SELFPAY ==
--- NOTE | 2024-11-05 11:00 | MM_ITS ---
PROCEDURE INFORMATION: Exam: MG Bilateral Screening 3D Mammography Exam date and time: 11/05/2024 11:13 AM Age: 49 years old Clinical indication: Screening examination. TECHNIQUE: Imaging protocol: Bilateral Screening tomosynthesis and 2D mammography including computer-aided detection (CAD) when performed. COMPARISON: 1. MG MM DIG SCREENING MAMM BI W/CAD 04/04/2023 3:35 PM 2. MG MM DIG SCREENING MAMM BI W/CAD 08/20/2021 9:58 AM FINDINGS: MAMMOGRAPHY: Breast composition: There are scattered areas of fibroglandular density. Mass: None. Architectural distortion: None. Calcifications: No suspicious calcifications. Asymmetric density: None. Skin thickening: None. Axillary adenopathy: None. IMPRESSION: No mammographic evidence of malignancy. Annual screening is recommended unless otherwise clinically indicated. ASSESSMENT: BI-RADS Category 1: Negative.
== END 2024-11-05 23:59 | disposition home or self-care (01) ==
LOC: RAD 10:56
PROVIDERS: PCP Nurse Practitioner Family; Visit Provider Nurse Practitioner Family
DX: Z12.31 Encounter for screening mammogram for malignant neoplasm of breast (principal); R92.323 Mammographic fibroglandular density, bilateral breasts
CPT/HCPCS: 77063; 77067

== ENCOUNTER 2025-01-20 08:39 | Outpatient (CLI) | payer BC, SELFPAY | END 2025-01-20 23:59 | disposition home or self-care (01) | LOC: LAB.DROPOF 01-21 10:55 | PROVIDERS: PCP Nurse Practitioner Family; Visit Provider Nurse Practitioner Family | DX: R39.89 Other symptoms and signs involving the genitourinary system (principal) | CPT/HCPCS: 87086; 87088; 87186 ==

== ENCOUNTER 2025-01-21 11:40 | Emergency (ER) | payer BC, SELFPAY ==
[2025-01-21] VITALS (7 sets, daily range): BP systolic 116–150; BP diastolic 59–89; PULSE 66–79; RESP 14; TEMP 36.8–37; O2SAT 98–100; BMI 35.2
--- NOTE | 2025-01-21 11:57 | ED_ITS ---
<Statement entered by Delaney Roque MD - 01/21/25 15:07> I was consulted by the KADEEM, and we discussed the complexity of the problems being addressed. I approved the treatment and management plan for this patient's care in the emergency department, thus performing a substantive portion of the medical decision making. Delaney Roque MD, ABRAHAM, FACEP Discharge Plan Disposition Patient Disposition: Home, Self-Care Prescriptions Prescriptions: New cefdinir 300 mg capsule 300 mg PO BID 7 Days Qty: 14 0RF No Action lamotrigine [Lamictal] 25 mg tablet 50 mg PO DAILY Qty: 60 2RF Rx Instructions: If you develop a rash or itching, stop the medication and call the clinic. omeprazole 20 mg capsule,delayed release(DR/EC) 20 mg PO BID Qty: 180 0RF cholecalciferol (vitamin D3) 50 mcg (2,000 unit) capsule 50 mcg PO DAILY Qty: 90 3RF ropinirole 1 mg tablet 1.5 mg PO HS Qty: 135 3RF Clenpiq 10 mg-3.5 gram- 12 gram/175 mL solution 175 ml PO DAILY 0 Days Qty: 350 0RF Rx Instructions: take first dose at 5-9PM evening before colonoscopy; 2nd dose the next day approximately 5 hrs before colonoscopy dextroamphetamine-amphetamine [Adderall XR] 25 mg capsule,extended release 24hr 25 mg PO DAILY Qty: 30 0RF Referrals Follow up/Referrals: Ariadne Pandey APRN [Primary Care Provider, Family Practice] - See instructions Activity Restrictions/Add. Instructions Additional Instructions/Restrictions: Today you were evaluated in the emergency department and diagnosed with a UTI. You were given IV antibiotics in the ED. Please take your oral antibiotics as directed and follow-up with your PCP within 1 week. Please return to the ED for any worsening of your condition. Clinical Impressions Clinical Impression: Urinary tract infection Instructions Patient Instructions: DI for Urinary Tract Infection (UTI) Print Language Print Language: Czech Discharge ED Provider: Delaney Roque General Adult HPI General Chief complaint: Urogenital-Female Stated complaint: bladder pain ,fever,chills, rt side pain Time Seen by Provider: 01/21/25 11:49 History of Present Illness HPI narrative: patient is a 49 year old female PMHx frequent UTIs, GERD & ADHD who presents to the ED for UTI symptoms. Patient states she has had chills and bodyaches associated with dysuria and frequency over the past several days. She was at [facility] yesterday and had a negative urine sample. Related Data Previous Rx's ?Medication ?Instructions ?Recorded cholecalciferol (vitamin D3) 50 50 mcg PO DAILY #90 ca ps 08/22/24 mcg (2,000 unit) capsule ropinirole 1 mg tablet 1.5 mg (1.5 x 1 mg) PO HS #1 35 tabs 09/06/24 lamotrigine 25 mg tablet (Lamictal) 50 mg (2 x 25 mg) PO DAILY #60 tabs 09/23/24 sod picosulf 10 mg-magnes 3.5 175 ml PO DAILY Bowel Pr ep 2 doses 10/30/24 gram-citric 12 gram/175 mL oral #350 mL solution (Clenpiq) dextroamphetamine-amphetamine ER 25 mg PO DAILY #30 ca ps 10/31/24 25 mg 24hr capsule,extend release (Adderall XR) omeprazole 20 mg capsule,delayed 20 mg PO BID #180 cap s 10/31/24 release cefdinir 300 mg capsule 300 mg PO BID 7 days #14 cap s 01/21/25 Allergies Allergy/AdvReac Type Severity Reaction Status Date / Time No Known Allergies Allergy Verified 01/20/25 08:53 [facility] Disclaimer: The information contained in this section may have been updated after the patient was seen, as this information can be updated by other users. Medical History RUQ pain Encounter to establish care Viral upper respiratory infection Right ear pain Acute effusion of both middle ears Poison janet dermatitis BMI 34.0-34.9,adult Attention Deficit Hyperactivity Disorder (ADHD) Dyspareunia Vitamin D deficiency Restless legs syndrome Pressure and pain of right side of face Dependent edema Chronic eustachian tube dysfunction Hoarseness Otitis media Urinary tract infection Kidney stone History of COVID-19 History of gastroesophageal reflux (GERD) History of anemia Fibrocystic breast Constipation Insomnia Surgical History Status post vaginal hysterectomy with right salpingo-oophorectomy 06/01/23 History of cholecystectomy S/P endometrial ablation History of tubal ligation Family History Other Family history of cancer Family history of diabetes mellitus type II Family history of hypertension Social History Smoking Status: Never smoker alcohol intake: current alcohol intake frequency: holidays/special occasions only substance use type: denies use current occupational status: employed Travel in the last 8 weeks?: None household members: spouse housing: house current occupation: [employer] current occupational exposures/hazards: Yes caffeine: Yes Other Medical History Have you received the Flu Vaccine for this season: No Have you received the Pneumonia Vaccine: No ROS Obtained: Yes Systems reviewed as appropriate & no additional complaints except as documented Physical Exam General General appearance: alert and in no apparent distress Head Head exam: atraumatic Eye Eye exam: Present PERRL and EOMI Neck Neck exam: Present full ROM Respiratory Respiratory exam: Present normal lung sounds bilaterally Cardiovascular Cardiovascular exam: Present regular rate Abdominal Exam Abdominal exam: Present soft and tenderness (suprapubic ) Extremities Exam Extremities exam: Present full ROM Back Exam Back exam: Present full ROM; Absent CVA tenderness (R) or CVA tenderness (L) Neurological Exam Neurological exam: Present alert and oriented X3 Skin Skin exam: Present warm and dry Medical Decision Making Medical Records Screening: Per USPSTF and CDC recommendations, given the prevalence of disease in our region, it is our hospital?s policy to screen for HIV and viral Hepatitis for all patients aged 18 and over and those with ongoing risk factors. Aron Inquiry Pt receiving controlled substance: No Vital Signs: 01/21/25 12:03 01/21/25 12:06 01/21/25 12:31 Temperature 98.3 F Temperature Source Oral Pulse Rate 75 68 Pulse Rate [Right] 77 Respiratory Rate 14 Blood Pressure 145/89 H 116/59 L Blood Pressure [Right Arm] 150/87 H Blood Pressure Mean [Right Arm] 108 Blood Pressure Source [Right Arm] Automatic Cuff Blood Pressure Position [Right Arm] Supine 02 Sat by Pulse Oximetry 99 99 100 Oxygen Delivery Method Room Air 01/21/25 13:01 01/21/25 13:30 01/21/25 14:01 Temperature Temperature Source Pulse Rate 79 71 66 Pulse Rate [Right] Respiratory Rate Blood Pressure 119/69 128/73 136/73 Blood Pressure [Right Arm] Blood Pressure Mean [Right Arm] Blood Pressure Source [Right Arm] Blood Pressure Position [Right Arm] 02 Sat by Pulse Oximetry 98 98 99 Oxygen Delivery Method Lab Data Lab Results 01/21/25 11:57: Urine Color Yellow, Urine Appearance Sl cloudy, Urine pH 6.0, Ur Specific [place] 1.025, Urine Protein Negative, Urine Glucose (UA) Negative, Urine Ketones Negative, Urine Blood Trace-i, Urine Nitrate Negative, Urine Bilirubin Negative, Urine Urobilinogen 0.2, Ur Leukocyte Esterase 2+ A, Urine RBC Occasional, Urine WBC 50-100, Ur Squamous Epith Cells 10-20, Urine Bacteria 3+, Urine HCG, Qual Negative 01/21/25 12:08: WBC 6.6, RBC 4.13 L, Hgb 11.9 L, Hct 36.9 L, MCV 89.3, MCH 28.8, MCHC 32.2, RDW 12.9, Plt Count 260, MPV 9.2, Neut % (Auto) 56.2, Lymph % (Auto) 31.5, Bledsoe % (Auto) 9.4 H, Eos % (Auto) 2.1, Baso % (Auto) 0.5, Neut # (Auto) 3.7, Lymph # (Auto) 2.1, Bledsoe # (Auto) 0.6, Eos # (Auto) 0.1, Baso # (Auto) 0.0, Sodium 139, Potassium 3.6, Chloride 104, Carbon Dioxide 27, Anion Gap 11.6, BUN 12, Creatinine 0.70, Estimated Creat Clear 141, Estimated GFR 89, Est GFR ( Amer) 107, Glucose 85, Calcium 8.8, Total Bilirubin 0.4, AST 25, ALT 14, Alkaline Phosphatase 69, Total Protein 7.2, Albumin 4.1, Globulin 3.1, Albumin/Globulin Ratio 1.3, Lipase 72, HCV Ab PARESH w/Rflx PCR Qn Negative, HIV Ag/Ab Combo Qual Negative 01/21/25 12:08 01/21/25 12:08 Orders (Tests/Meds): ED MEDICATIONS Discontinued Medications Generic Name Dose Route Start Last Admin Trade Name Freq PRN Reason Stop Dose Admin Sodium Chloride 1,000 mls @ 999 mls/hr 01/21/25 12:03 01/21/25 12:17 Sod Chlor 0.9% 1000ml Bag IV 01/21/25 13:03 999 mls/hr .Q1H1M ONE Administration Ceftriaxone Sodium 1 gm/ 50 mls @ 100 mls/hr 01/21/25 12:52 01/21/25 13:18 Sodium Chloride IV 01/21/25 13:21 100 mls/hr Q24H ONE Administration Iopamidol 75 ml 01/21/25 12:25 01/21/25 12:27 Iopamidol-370 (76%);100ml Bottle IV 01/21/25 12:26 75 ml ONCE ONE Administration Ketorolac Tromethamine 15 mg 01/21/25 12:03 01/21/25 12:16 Ketorolac 30mg/Ml Vial IV 01/21/25 12:04 15 mg ONCE ONE Administration Sodium Chloride 10 ml 01/21/25 12:25 01/21/25 12:26 Sodium Chloride 0.9% 10ml Syr (Rad Only) IV 01/21/25 12:26 10 ml ONCE ONE Administration ORDERS Category Date Time Status CT abdomen pelvis w con Stat Cat Scan 01/21/25 12:02 Taken CBC w/Auto Diff [Complete Blood Count Auto Diff] Stat Lab 01/21/25 12:08 Completed CMP [Comprehensive Metabolic Panel] Stat Lab 01/21/25 12:08 Completed HIV Combo Stat Lab 01/21/25 12:08 Completed Hepatitis C Ab Qual. W/ RFX Stat Lab 01/21/25 12:08 Completed Lipase Stat Lab 01/21/25 12:08 Completed Urinalysis and Microscopic Stat Lab 01/21/25 11:57 Completed Urine , HCG Qual. Stat Lab 01/21/25 11:57 Completed Urine Culture Stat Micro 01/21/25 11:57 Received Medical Decision Narrative: In summary, patient is a 49 year old female PMHx frequent UTIs, GERD & ADHD who presents to the ED for UTI symptoms. Patient states she has had chills and bodyaches associated with dysuria and frequency over the past several days. She was at [facility] yesterday and had a negative urine sample. She presents to the ED today complaining of suprapubic pain, no flank pain. Has not had anything prior to arrival. Denies headache, visual changes, chest pain, shortness of breath, nausea, vomiting. Upon initial evaluation patient is alert, oriented and cooperative. She is hemodynamically stable. She has mild suprapubic tenderness upon palpation. Differential diagnosis include pyelonephritis, sepsis, stone, obstructing stone, among others. Discussed with patient will proceed with labs and CT scan of the abdomen pelvis. Will be symptomatically managed with IV fluids and Toradol. Labs reviewed. CBC unremarkable for any leukocytosis, stable H&H. CMP overall unremarkable for any actionable abnormalities. Lipase 72. Urinalysis remarkable for 2+ leuks, 3+ bacteria, hCG negative. Started Rocephin 1 g IV and advised patient we will be discharging her home on oral antibiotics. Upon reassessment, patient's condition has improved. We discussed follow-up with PCP within 1 week. We discussed taking the cefdinir as directed. Discussed return precautions to the ED and patient verbalized understanding. Upon discharge she was hemodynamically stable and ambulatory without difficulty from the ED. Critical Care Critical Care Time Critical Care Time: No
--- NOTE | 2025-01-21 12:02 | CT_ITS ---
FINAL REPORT TECHNIQUE: Thin section axial images are obtained through the abdomen and pelvis after intravenous contrast. Reconstruction images were obtained from the axial data. Exam was performed using dose reduction techniques. CLINICAL HISTORY: RLQ abd pain COMPARISON: 05/19/2021 FINDINGS: LUNG BASES: Lung bases are clear. Heart size is normal. LIVER: Homogeneous. No focal lesion. GALLBLADDER/BILIARY SYSTEM: Gallbladder is absent. No biliary dilatation. SPLEEN: Unremarkable. PANCREAS: Unremarkable. ADRENALS: Unremarkable. KIDNEYS/URETERS/BLADDER: No hydronephrosis, renal mass, or renal stone. Wall thickening of the urinary bladder could be related to incomplete distention. Cystitis not excluded. GI TRACT: No small bowel obstruction or dilatation. Normal appendix. No acute colon abnormality. PELVIC ORGANS: Unremarkable for age. Uterus is absent. LYMPH NODES/RETROPERITONEUM/MESENTERY: No lymphadenopathy. No abdominal aortic aneurysm. ABDOMINAL WALL: The abdominal wall is intact. FREE FLUID: No ascites. BONES: No acute osseous abnormality. IMPRESSION: 1. Normal appendix. 2. Possible cystitis. Correlate with urinalysis. Reviewed, Interpreted and Dictated by Danya Szymanski MD Transcribed by Hillary Ruiz Authenticated and [facility][1]
[2025-01-21 12:08] LABS: Microscopic, Urine URINE MICROSCOPIC (MICROSCOPIC)
[2025-01-21 12:11] LABS: Bilirubin,Urine Negative (Negative); Color,Urine YELLOW (Yellow); Glucose,Urine (UA) Negative (Negative); Ketones,Urine Negative (Negative); Leukocyte Esterase,Urine 2+ (Negative); PH,Urine 6.0 (5.0-8.5); Protein,Urine Negative (Negative); Specific Gravity, Urine 1.025 (1.005-1.030); Urobilinogen,Urine 0.2 EU/dl (0.2)
[2025-01-21 12:14] LABS: Urine Pregnancy, HCG Qual. Negative (Negative)
[2025-01-21 12:15] LABS: Hematocrit 36.9 % (37.0-47.0); Hemoglobin 11.9 g/dL (12.2-16.2); Immature Granulocytes % 0.3 %; Mean Corpuscular HGB Conc 32.2 g/dL (31.8-35.4); Mean Corpuscular Hemoglobin 28.8 pg (27.0-31.2); Mean Corpuscular Volume 89.3 fl (81-99); Nucleated Red Blood Cells % 0 %; Platelet Count 260 K/mm3 (142-424); Red Blood Count 4.13 M/mm3 (4.20-5.40); Red Cell Distribution Width-SD 42.7 fL; White Blood Count 6.6 K/mm3 (4.8-10.8)
[2025-01-21] MEDS: KETOROLAC 30MG/ML VIAL 15 MG IV (12:16)
[2025-01-21] MEDS: 0.9 % SODIUM CHLORIDE 1000ML 1,000 ML 999 ML IV (12:17)
[2025-01-21 12:23] LABS: Chloride 104 mmol/L (98-107)
[2025-01-21 12:24] LABS: Albumin Level 4.1 g/dl (3.5-5.0); Potassium 3.6 mmoL/L (3.5-5.1); Sodium 139 mmol/L (136-145)
[2025-01-21 12:26] LABS: Anion Gap 11.6 mEq/L (5-15); Blood Urea Nitrogen 12 mg/dl (7-17); Carbon Dioxide 27 mmol/L (22.0-30.0); Creatinine Clearance Estimated 141 mL/min (50-200); Creatinine,Serum 0.70 mg/dl (0.52-1.04); Estimated Glomerular Filt Rate 89 ml/min (>60); GFR (African American) 107 ML/MIN (>60)
[2025-01-21] MEDS: SODIUM CHLORIDE 0.9% 10ML SYR (RAD ONLY) 10 ML IV (12:26)
[2025-01-21 12:27] LABS: Alanine Aminotransferase 14 U/L (12-78); Albumin/Globulin Ratio 1.3 (1.1-1.8); Alkaline Phosphatase 69 U/L (38-126); Aspartate Amino Transferase 25 U/L (14-36); Bilirubin,Total 0.4 mg/dl (0.2-1.3); Calcium 8.8 mg/dl (8.4-10.2); Globulin 3.1 g/dL (1.3-3.2); Glucose 85 mg/dl (74-100); Lipase 72 U/L (23-300); Total Protein,Serum 7.2 g/dl (6.3-8.2)
[2025-01-21] MEDS: IOPAMIDOL-370 (76%);100ML BOTTLE 75 ML IV (12:27)
[2025-01-21 12:33] LABS: Bacteria,Urine 3+ /lpf; RBC,Urine Occasional #/hpf (0-3); WBC,Urine 50-100 #/hpf (0-3)
--- NOTE | 2025-01-21 13:14 | PC.NURSE ---
per coy braden, no blood cultures needed.
[2025-01-21] MEDS: CEFTRIAXONE 1 GM 1 GM in 0.9 % SODIUM CHLORIDE 50 ML IV (13:18)
[2025-01-21 13:51] LABS: Hepatitis C Ab Qual. W/ RFX NEGATIVE (Negative)
== END 2025-01-21 14:18 | disposition home or self-care (01) ==
PROVIDERS: Nurse Practitioner; Emergency Provider Student in an Organized Health Care Education/Training Program; PCP Nurse Practitioner Family
DX: N39.0 Urinary tract infection, site not specified (principal); R10.819 Abdominal tenderness, unspecified site; R30.0 Dysuria; R35.0 Frequency of micturition
CPT/HCPCS: 74177; 80053; 81001; 81025; 83690; 85025; 86803; 87086; 87088; 87186; 87389; 96361; 96365; 96375; 99284; J0696; J1885; J7030; Q9967

== ENCOUNTER 2025-02-12 11:45 | Outpatient (CLI) | payer BC, SELFPAY | END 2025-02-12 23:59 | LOC: LAB.DROPOF 02-14 10:00 | PROVIDERS: PCP Nurse Practitioner Family; Visit Provider Nurse Practitioner Family | DX: N39.0 Urinary tract infection, site not specified (principal) | CPT/HCPCS: 87086; 87088; 87186 ==